=== PATIENT | male | born 1950 | race Caucasian/White ===

== ENCOUNTER → 2017-12-22 09:40 | Outpatient (CLI) | payer OTHER, SELFPAY ==
--- NOTE | 2017-12-22 09:42 | ECHOD_ITS ---
Reason For Study: AFIB Procedure This was a 2D Doppler, Color Flow transthoracic echocardiogram. Exam performed in department. Left Ventricle Mild concentric left ventricular hypertrophy. The estimated ejection fraction is 60 %. Stage 1 diastolic dysfunction. No regional wall motion abnormalities noted. Right Ventricle Normal size and thickness. Normal systolic function. Atria The left atrium is mildly enlarged. Normal right atrium. Normal atrial septum. Mitral Valve The mitral valve is structurally normal. No prolapse or stenosis seen. Trivial mitral valve insufficiency. Tricuspid Valve Normal tricuspid valve. Trivial tricuspid valve insufficiency. Right ventricular systolic pressure estimated to be 30 mmHg. Aortic Valve Trisinus/trileaflet aortic valve. Moderate diffuse aortic valve thickening. Mild diffuse aortic valve calcification. Mild to moderate aortic stenosis. Peak aortic valve gradient 27 mmHg. Mean aortic valve gradient 16 mmHg. Calculated aortic valve area (continuity equation) is 1.4 cm2. Trivial aortic valve insufficiency. Pulmonic Valve Normal pulmonic valve. Great Vessels Normal aortic root. Normal arch. Normal inferior vena cava. Inferior vena cava collapse with sniff. Pericardium/Pleural No pericardial effusion. MMode/2D Measurements & Calculations LVIDd: 4.7 cm IVSd: 1.3 cm LVOT diam: 2.0 cm LVIDs: 2.9 cm LVPWd: 0.99 cm LVOT area: 3.1 cm2 RVDd: 3.4 cm FS: 38.6 % Ao root diam: 3.3 cm LAV(MOD-bp): 65.2 ml EDV(MOD-sp4): 143.7 ml LAV(MOD-bp) Indexed: 34.6 ml/m2 ESV(MOD-sp4): 67.6 ml LAV(MOD-sp2): 73.8 ml EF(MOD-sp4): 52.9 % LAV(MOD-sp4): 58.0 ml SV(MOD-sp4): 76.1 ml LA A4 area: 21.2 cm2 RA A4 area: 18.0 cm2 Doppler Measurements & Calculations MV E max sujata: 110.6 cm/sec Ao V2 max: 259.6 cm/sec AI max sujata: 454.1 cm/sec MV A max sujata: 146.2 cm/sec Ao max P.0 mmHg AI max P.5 mmHg MV E/A: 0.76 Ao V2 mean: 190.3 cm/sec AI dec slope: 138.5 cm/sec2 Ao mean P.0 mmHg AI P1/2t: 960.5 msec Ao V2 VTI: 68.0 cm JOSE EDUARDO(I,D): 1.4 cm2 JOSE EDUARDO(V,D): 1.4 cm2 LV V1 max: 117.1 cm/sec SV(LVOT): 97.2 ml PA V2 max: 133.0 cm/sec LV V1 max P.5 mmHg LV V1 mean P.2 mmHg LV V1 mean: 86.7 cm/sec LV V1 VTI: 31.2 cm TR max sujata: 275.7 cm/sec TR max P.7 mmHg Interpretation Summary Mild concentric left ventricular hypertrophy. The estimated ejection fraction is 60 %. Stage 1 diastolic dysfunction. The left atrium is mildly enlarged. Trivial mitral valve insufficiency. Trivial tricuspid valve insufficiency. Right ventricular systolic pressure estimated to be 30 mmHg. Mild to moderate aortic stenosis. Trivial aortic valve insufficiency. There is no comparison study available. Ordering Physician: Barry Acosta Referring Physician: Claudia Worley Performed By: Salina Drummond RDCS
--- NOTE | 2017-12-22 09:42 | STE_ITS ---
Reason For Study: ATRIAL FIB/FLUTTER Stress Results Maximum Predicted HR: 153 bpm Target HR: 130 bpm % Maximum Predicted HR: 85 % DurationHeart Rate Stage (mm:ss) (bpm) BP BASELINE 65 150/88 STAGE 1 3:00 11 0 210/92 STAGE 2 3:00 13 0 230/100 RECOVERY 80 140/80 Stress Duration: 6:00 mm:ss Maximum Stress HR: 130 bpm Baseline Echocardiogram Findings The estimated ejection fraction is 65 %. Stress Echo Wall motion Data Resting WMIntermediate WMStress WM Resting Wall Motion Wall Motion Stress No regional wall motion No regional wall motion abnormalities noted. abnormalities noted. EKG Data Normal intervals are noted. The patient exercised according to the regular Bernabe protocol for a total duration of 6:00. The maximum heart rate attained was 133 beats per minute. This was 86% of maximum predicted heart rate. The patient exercised into stage 3 of the Bernabe protocol. During stress, there were no ST or T wave changes noted to suggest ischemia. No clinical angina was noted. Interpretation Summary The estimated ejection fraction is 65 %. Normal adequate treadmill echocardiogram. Negative for ischemia by EKG and echocardiographic criteria. No anginal symptoms noted. Rare PVCs noted. Hypertensive blood pressure response to exercise. Average exercise capacity for age. Final LVEF of 70%. Patient tolerated procedure well. Ordering Physician: Barry Acosta Referring Physician: Barry Acosta Performed By: Viktoria Lua RDCS
== END ==
PROVIDERS: Visit Provider Internal Medicine Cardiovascular Disease
DX: I48.0 Paroxysmal atrial fibrillation (principal); I25.10 Atherosclerotic heart disease of native coronary artery without angina pectoris; I10 Essential (primary) hypertension; E78.5 Hyperlipidemia, unspecified
CPT/HCPCS: 93017; 93306; 93350

== ENCOUNTER → 2019-08-17 12:41 | Outpatient (CLI) | payer SELFPAY ==
[2019-01-30 11:50] VITALS: BMI 29.5
--- NOTE | 2019-08-17 12:46 | ECHOD_ITS ---
Reason For Study: AORTIC STENOSIS Procedure This was a 2D Doppler, Color Flow transthoracic echocardiogram. Exam performed in department. Left Ventricle Normal size and thickness. The estimated ejection fraction is 60 %. Stage 1 diastolic dysfunction. No regional wall motion abnormalities noted. Right Ventricle Normal size and thickness. Normal systolic function. Atria The left atrium is mildly enlarged. Normal right atrium. Normal atrial septum. Mitral Valve Mild diffuse mitral valve thickening. Severe mitral annular calcification extending into the posterior leaflet. Trivial mitral valve insufficiency. Tricuspid Valve Normal tricuspid valve. Mild (1+) tricuspid valve insufficiency. Right ventricular systolic pressure estimated to be 36 mmHg. Aortic Valve Trisinus/trileaflet aortic valve. Moderate diffuse aortic valve thickening. Mild diffuse aortic valve calcification. Moderate restriction of the aortic valve. Mild to moderate aortic stenosis. Peak aortic valve gradient 31 mmHg. Mean aortic valve gradient 19 mmHg. Calculated aortic valve area (continuity equation) is 1.3 cm2. Trivial aortic valve insufficiency. Pulmonic Valve Normal pulmonic valve. Trivial pulmonic valve insufficiency. Great Vessels Normal aortic root. Normal arch. Normal inferior vena cava. Inferior vena cava collapse with sniff. Pericardium/Pleural No pericardial effusion. MMode/2D Measurements & Calculations LVIDd: 5.2 cm IVSd: 1.1 cm LVOT diam: 2.0 cm LVIDs: 3.5 cm LVPWd: 1.1 cm LVOT area: 3.3 cm2 RVDd: 3.4 cm FS: 32.4 % Ao root diam: 3.0 cm LAV(MOD-bp): 68.4 ml LA A4 area: 21.3 cm2 LAV(MOD-bp) Indexed: 36.2 ml/m2 LAV(MOD-sp2): 69.3 ml LAV(MOD-sp4): 64.5 ml LA dimension(2D): 4.2 cm RA A4 area: 18.5 cm2 Time Measurements MV dec time: 0.16 sec Doppler Measurements & Calculations MV E max sánchez: 124.9 cm/sec Lat Peak E' Sánchez: 7.7 cm/sec Med Peak E' Sánchez: 5.3 cm/sec MV A max sánchez: 142.7 cm/sec E/E' lat: 16.3 E/E' med: 23.4 MV E/A: 0.88 Ao V2 max: 278.7 cm/sec AI max sánchez: 465.5 cm/sec LV V1 max: 110.2 cm/sec Ao max P.1 mmHg AI max P.8 mmHg LV V1 max P.9 mmHg Ao V2 mean: 207.9 cm/sec AI dec slope: 307.6 cm/sec2 LV V1 mean P.0 mmHg Ao mean P.8 mmHg AI P1/2t: 443.2 msec LV V1 mean: 82.5 cm/sec Ao V2 VTI: 71.7 cm LV V1 VTI: 29.5 cm JOSE EDUARDO(I,D): 1.3 cm2 JOSE EDUARDO(V,D): 1.3 cm2 SV(LVOT): 96.4 ml PA V2 max: 123.9 cm/sec TR max sánchez: 270.4 cm/sec TR max P.3 mmHg Interpretation Summary The estimated ejection fraction is 60 %. Stage 1 diastolic dysfunction. The left atrium is mildly enlarged. Trivial mitral valve insufficiency. Mild (1+) tricuspid valve insufficiency. Right ventricular systolic pressure estimated to be 36 mmHg. Mild to moderate aortic stenosis. Peak aortic valve gradient 31 mmHg. Mean aortic valve gradient 19 mmHg. Calculated aortic valve area (continuity equation) is 1.3 cm2. Trivial aortic valve insufficiency. Compared to echo report dated 12/22/2017, no appreciable changes noted. Ordering Physician: Barry Acosta Referring Physician: Barry Acosta Performed By: Antoinette Gonzalez, KATIE, RVT
--- NOTE | 2019-08-17 12:46 | STEWCON_ITS ---
Reason For Study: - ON SOTALOL Stress Results Protocol: Stress Echocardiogram Maximum Predicted HR: 151 bpm Target HR: 128 bpm % Maximum Predicted HR: 83 % DurationHeart Rate Stage (mm:ss) (bpm) BP Comment BASELINE 74 134/84DILUTED DEFINITY 3 CC GIVEN KIRK PROTOCOL- STAGE 1 3:00 113 148/90NO SX, FREQ PVCS, RUNS KIRK PROTOCOL- STAGE 2 3:00 125 152/92FREQ PVCS/RUNS, NO CP RECOVERY 80 140/84RARE TO OCCAS PVCS Stress Duration: 6:00 mm:ss Maximum Stress HR: 125 bpm Baseline Echocardiogram Findings The estimated ejection fraction is 60 %. Stress Echo Wall motion Data Resting WM Intermediate WM Stress WM Resting Wall Motion Wall Motion Stress No regional wall motion Posterior-Basal: Mildly abnormalities noted. hypokinetic. Infero-Basal: Mildly hypokinetic. EKG Data The baseline ECG displays normal sinus rhythm. The patient exercised according to the regular Kirk protocol for a total duration of 5:59. The maximum heart rate attained was 125 beats per minute. This was 82% of maximum predicted heart rate. The patient exercised into stage 2 of the Kirk protocol. During stress, there were no ST or T wave changes noted to suggest ischemia. No clinical angina was noted. Interpretation Summary The estimated ejection fraction is 60 %. Abnormal, submaximal, treadmill echocardiogram. Positive for ischemia by EKG and echocardiographic criteria. No anginal symptoms noted. Patient had frequent PVCs during exercise with ventricular couplets and ventricular triplets combined with evidence of inferior posterior hypokinesis at peak exercise on echocardiogram. Poor echo windows requiring Definity agent may affect test results. Appropriate blood pressure response to exercise. Below average exercise capacity for age. Final LVEF of 50 %. Patient tolerated procedure well. No complications. The study was technically difficult. Contrast injection was performed. Ordering Physician: Barry Acosta Referring Physician: Barry Acosta Performed By: Antoinette Gonzalez RDCS, RVT
== END ==
PROVIDERS: Referring Provider Internal Medicine Cardiovascular Disease; Visit Provider Internal Medicine Cardiovascular Disease
DX: I35.0 Nonrheumatic aortic (valve) stenosis (principal); I11.0 Hypertensive heart disease with heart failure; I50.32 Chronic diastolic (congestive) heart failure; I25.10 Atherosclerotic heart disease of native coronary artery without angina pectoris; I48.0 Paroxysmal atrial fibrillation; E78.5 Hyperlipidemia, unspecified
CPT/HCPCS: 93017; 93306; 93350; Q9957; A4216; C8928

== ENCOUNTER → 2019-08-23 10:42 | Outpatient (CLI) | payer OTHER, SELFPAY ==
[2019-08-23 09:54] VITALS: BMI 29.5
[2019-08-23 11:56] LABS: Hematocrit 40.9 % (40-54); Mean Corp Hgb Conc 34.2 g/dL (32-36); Mean Corpuscular Hgb 29.6 pg (27.0-32.0); Mean Corpuscular Volume 86.5 fL (80-94); Mean Platelet Vol. 10.1 fl (6.2-12.0); Platelet Count 170 K/mm3 (150-450); RBC Distribution Width CV 13.6 % (11.6-14.6); Red Blood Count 4.73 M/mm3 (4.6-6.2); White Blood Count 4.8 K/mm3 (4.4-11.0)
[2019-08-23 12:10] LABS: International Normalized Ratio 1.2; Prothrombin Time (Protime)PT. 14.5 SECONDS (11.7-14.9)
[2019-08-23 12:11] LABS: Partial Thromboplast Time 31.3 Seconds (24.1-36.2)
[2019-08-23 12:53] LABS: Anion Gap 6 (5-15); BUN 22 mg/dL (7-18); BUN/Creat Ratio 26.8 RATIO (10-20); Calcium,Total 9.1 mg/dL (8.5-10.1); Chloride 107 mmol/L (98-107); Creatinine, Serum 0.82 mg/dL (0.70-1.30); EST Glomerular Filtration Rate 99 mL/min (>60); Est Glom Filt Rate - Afr Amer 120 mL/min (>60); Glucose 120 mg/dL (74-106); Potassium 4.4 mmol/L (3.5-5.1); Sodium Level 140 mmol/L (136-145)
== END ==
PROVIDERS: Referring Provider Internal Medicine Cardiovascular Disease; Visit Provider Internal Medicine Cardiovascular Disease
DX: I25.10 Atherosclerotic heart disease of native coronary artery without angina pectoris (principal); I50.32 Chronic diastolic (congestive) heart failure; I35.0 Nonrheumatic aortic (valve) stenosis; I48.0 Paroxysmal atrial fibrillation; R94.39 Abnormal result of other cardiovascular function study
CPT/HCPCS: 36415; 80048; 85027; 85610; 85730

== ENCOUNTER 2019-08-29 06:51 | Day surgery (SDC) | payer SELFPAY, OTHER ==
[2019-01-30 11:50] VITALS: BMI 29.5
[2019-08-23 09:54] VITALS: BMI 29.5
--- NOTE | 2019-08-23 10:35 | RAD_ITS ---
STUDY: X-RAY CHEST REASON FOR EXAM: Male, 69 years old. History of congestive heart failure, stent placed 4 years ago. TECHNIQUE: PA and lateral views of the chest. COMPARISON: None. FINDINGS: The lungs are clear and expanded. There is no demonstrated pleural abnormality. Normal size heart. Normal mediastinum and pascual. Normal visualized pulmonary arteries. There is atherosclerotic calcification of the aortic arch with tortuosity. There are diffuse degenerative changes of the visualized thoracic spine. There is degenerative osteoarthritis of the bilateral shoulders. There is no demonstrated abnormality of the visualized soft tissue structures of the upper abdomen. RAD/Chest PA and Lateral IMPRESSION: No acute cardiopulmonary disease. Electronically Signed: Shy Hogan MD at 1:12 EST , Service support ,
[2019-08-29] VITALS (36 sets, daily range): BP systolic 101–156; BP diastolic 57–92; PULSE 44–70; RESP 9–17; TEMP 36.4–37; O2SAT 94–98; BMI 28.5; BMI 29.2; BMI 28.4
--- NOTE | 2019-08-29 09:21 | EKG12_ITS ---
Test Reason : POST PCI Blood Pressure : / mmHG Vent. Rate : 052 BPM Atrial Rate : 052 BPM P-R Int : 192 ms QRS Dur : 082 ms QT Int : 490 ms P-R-T Axes : 054 012 020 degrees QTc Int : 455 ms Sinus bradycardia Otherwise normal ECG No previous ECGs available Confirmed by CASSIDY ACOSTA ([id number]), loan expeditor ATUL KIM ([id number]) on 09/10/2019 10:48:19 AM Referred By: Cassidy Acosta Confirmed By:CASSIDY ACOSTA
--- NOTE | 2019-08-29 09:21 | CL.I_ITS ---
Patient Name: SIMON KIM Study Date: 08/29/2019 Performing: Barry Acosta MD Ht: 66 inches 167.64 cm : 1950 Wt: 177 lbs 80.19 kg Age: 69 Gender: male BSA: 1.9 PROCEDURE(S) PERFORMED [id number]/LHC/COR/LV AI81-HZX W OR WO PTCA, SINGLE CORONARY ARTERY [id number], EACH ADD'L CORONARY ART, SAME MAJOR CLINICAL PROFILE AND CO-MORBIDITIES Indications: Stable Known CAD, Other/aortic stenosis Heart Failure: None Stress/Imaging Date: 08/17/2019 Stress Echocardiogram: Positive Intermediate Risk Angina Classification Anginal Classification w/in 2 Weeks: No symptoms CAD Presentations: Other: Dyspnea on exertion Comorbidities/Risk Factors: Hypertension Dyslipidemia Prior PCI CONCLUSIONS Normal Left Ventricular systolic function Normal LV size, wall motion,and systolic function LVEF: by LV gram 65 % Elevated Left Ventricular End Diastolic Pressure Single vessel CAD of the mid LCX Non obstructive coronary arteries The patient has normal pulmonary hemodynamics. Aortic Root dilated Aortic Valve Stenosis- Mild Successful PTCA/ANGELITA to mid LCX at bifurcation of OM#1 using double wire technique, using a 3.5 x 12 P romus Synergy; 85%-->0%, no dissection. Successful PCI with PTCA to the ostium of the OM#1 with a 2.0 x 8 balloon; 65%-->10%, no dissection. RECOMMENDATIONS Referred for immediate PCI Highly recommend quitting all tobacco products Follow up with primary business development consultant Risk factor modification ASA Indefinitley Plavix for at least 12 months Routine post interventional care Refer for Outpatient Cardiac Rehab Manual sheath removal per protocol Follow up with Dr. Dave reyes for 1 week. Manual sheath removal by laborer general staff member. DESCRIPTION OF PROCEDURE The patient arrived to the procedure lab. The risks and benefits of the procedure as well as a full d escription of our services here and lack of surgical backup were fully explained to the patient and/o r their significant other prior to the catheterization. The Timeout was completed, verifying the linda ect patient and procedure. The patient's procedural site was prepped and draped in the usual fashion. Local anesthetic was given subcutaneously to right groin region with Lidocaine 2%. Using a modified Seldinger technique, arterial access was obtained via the right femoral artery, a 4Fr sheath was inse rted. Venous access was obtained via the right femoral vein, a 7Fr sheath was inserted. A 7Fr thermal dilution catheter was inserted and right heart pressures were recorded, it was then advanced to PA p osition for cardiac outputs. Thermal dilution cardiac outputs were then recorded. The Thermal dilutio n catheter was then removed. Left Ventriculography was performed in FOURNIER projection using a 4 Fr. Pigtail catheter. Left Coronary Artery selective angiography was performed in multiple views us ing a 4 Fr. JL5 catheter. Right Coronary Artery selective angiography was then performed in multiple views using a 4 Fr. 3DRC catheterThe images were reviewed and options discussed. A decision was then made to proceed with an Intervention, IVUS or other adjunct procedure. Arterial sheath was exchanged for a 6 Fr Sheath. EBU 3.5 Guide catheter was inserted and engaged into the LCA. BMW Guide wire was advanced to the Circumflex. BMW Guide wire was inserted as a savanah w jagjit OM #1 Angiogram performed pre balloon dilatation. Emerge 2.00x8 Balloon catheter was inserted. PT CA balloon inflated at 4 atms for 8 secs. Angiogram performed post balloon dilatation. Synergy 3.50x1 2 Drug Eluting stent was inserted. Emerge 2.00x8 Balloon catheter was inserted. PTCA balloon inflated at 8 atms for 11 secs. PTCA balloon inflated at 8 atms for 25 secs. Angiogram performed post balloon dilatation. Contrast was injected through the sheath and the Right Iliac and Femoral artery were ass essed for possible closure device. The arterial and venous sheath was sutured in place and capped CORONARY ANGIOGRAPHY DOMINANCE: Left Dominant LEFT HEART ASSESSMENT Left Ventricular Ejection Fraction: by LV Gram 65 % Normal Left Ventricular systolic function LVEDP: 18 mmHg Elevated Left Ventricular End Diastolic Pressure Normal LV wall motion RIGHT HEART ASSESSMENT Thermal CO: 6.07 Thermal CI: 3.19 Gregory CO: 4.58 Gregory CI: 2.41 PW: 19/20 11 PA: 31/13 20 RV: 33/0 7 RA: 8/5 2 PVR: 119 SVR: 1357 Aortic Valve Area: 2.39 Aortic Valve Index: 1.26 Aortic Valve Mean Gradient: 16.9 Mitral Valve Area: 1.92 Mitral Valve index: 1.01 Mitral Valve Mean Gradient: 8.4 Right Heart pressures - normal LEFT MAIN: Angiographically normal LEFT ANTERIOR DESCENDING ARTERY: MID LAD: Previously placed stent is patent DIAGONAL 1: Proximal - Non-obstructive CIRCUMFLEX ARTERY: MID CIRC: 85 % Stenosis RIGHT CORONARY ARTERY: Non-obstructive INTERVENTION INFORMATION LESION SITE: Circumflex (Mid) Lesion Complexity: Non-High/Non-C, lesion at bifurcation: Yes, thrombus present: No, lesion length: 1 2 mm, culprit lesion: Yes Pre Stenosis: 85 % Pre intervention ANAND flow: 3 PROCEDURE: Drug Eluting Stent with pre dilatation. Post Stenosis: 0 % Post intervention ANAND flow: 3 Lesion Devices: [employer] EMERGE MR 2.00x08 BALLOON [place] .014 BMW [place] Straight 190cm [employer] Synergy MR ANGELITA 3.50x12 LESION SITE: 1st OM (Ostial) Lesion Complexity: Non-High/Non-C, lesion at bifurcation: Yes, thrombus present: No, lesion length: 8 mm, culprit lesion: No Pre Stenosis: 65 % Pre intervention ANAND flow: 3 Post Stenosis: 10 % Post intervention ANAND flow: 3 Lesion Devices: Vivid [employer] MR 2.00x08 BALLOON [place] .014 BMW [place] Straight 190cm COMPLICATIONS No Complications PROCEDURE MEDICATIONS Heparin 6000 unit(s) IV 08/29/2019 08:39:16 Nitro 200 mcg IC 08/29/2019 08:48:09 Nitro 300 mcg IC 08/29/2019 08:51:49 Nitro 300 mcg IC 08/29/2019 08:56:01 Nitro Paste 1 in RCW 08/29/2019 09:05:36 IV Bolus: .9 NaCl 350 ml total 08/29/2019 08:40:57 SUMMARY OF HEMODYNAMIC DATA Time AIR REST ECG 07:21:40 RA 8/5 (2) SV 08:22:44 RV 33/0, 7 08:23:14 PW (11) PV 08:24:35 PA 31 (20) PA 08:24:58 PW (9) 08:25:28 LV 147/-11, 16 08:30:06 LV 152/-10, 18 08:30:13 LV 154/-11, 15 08:30:34 PW / (12) 08:30:34 LV 148/-10, 15 08:30:40 PW 18/16 (9) 08:30:40 LV 147/-15, 13 08:30:59 RV 31/-4, 5 08:30:59 LV 156/-10, 20 08:31:06 RV 33/0, 6 08:31:06 LVp 159/-10, 22 08:32:35 LV 155/-10, 18 08:32:36 LVp 159/-9, 24 08:32:40 AOp 149/68 (97) 08:32:41 AOp 149/68 (98) 08:32:45 AO 133/84 (105) SA 08:35:24 Valve Area (c P-P/ms Time AIR REST Mitral 1.92 8.4 mn/518 ms 08:30:40 2.40 08:32:35 Type SV CO (l/m) CI (l/m/ HR Time AIR REST Thermal 126.50 6.07 3.19 48 07:21:40 Gregory 95.40 4.58 2.41 48 07:21:40 Label % O2 Pres/Loc Time AIR REST PA 68 PA 08:43:42 AO 97 PV 08:43:47 Signed By Barry Acosta MD On 09/04/2019 11:25:44 AM Barry Acosta MD
[2019-08-29] MEDS: 0.9% Normal Saline 1,000 ML 150 ML IV (10:05)
--- NOTE | 2019-08-29 10:19 | CRPHASE1_ITS ---
Patient Communication PHII Cardiac Rehab Discussed with Patient:: Yes Guide to Cardiac Rehab Given to Patient:: Yes Cardiac Rehab Facility Choice List Given to Patient:: Yes Choice Program Other:: Communication Given to CR, With permission faxed order and referral information - [facility] Pipe Testing Technician:: Barry Acosta PCP:: Piotr Worley Refer Phase II Cardiac Rehab:: Yes Risk Factors/Lifestyle Hx Hypertension: Yes Hx Diabetes Mellitus Type 1: No Hx Dyslipidemia: Yes Height: 5 ft 6 in Weight:: 176 lb BMI: 28.4 Family History: Family History (Last Reviewed 07/26/19 @ 09:59 by Brandee Herman) Mother Hypertension Father Hypertension CAD (coronary artery disease) Phase I Education Given On:: [place], Nutrition, Antiplatelet medication, CHF, Smoking cessation, Diabetes - Type I, Diabetes - Type II Issues Affecting Care:: None Medical/Surgical History CAD:: Yes Valve Disease/Replacement:: Yes Pulmonary:: No COPD:: No Asthma:: No Diabetes:: No Hypertension:: Yes Dyslipidemia:: Yes Arrhythmias:: Yes - HX OF A FIB PE:: No DVT:: No PVD:: No Arthritis:: Yes - OSTEOARTHRITIS GERD:: No Cancer:: No Renal:: No Thyroid:: No CABG: No ICD:: No Pacemaker:: No Discharge/Home/Social Eval Discharge Disposition: Home Marital Status: Cardiac Rehabilitation Info Cardiac Rehabilitation Program Information: Cardiac Rehabilitation is important for patients like you who are recovering from a heart problem. Cardiac rehabilitation programs are recognized as integral to the continued care of the patient with coronary heart disease. The cardiac rehabilitation program is designed to optimize a patient's physical, psychological, and social functioning. Health career placement specialist work in cardiac rehabilitation programs and assist you with getting the treatments you need to get stronger and healthier - like exercise, healthy eating habits, and medications. Cardiac rehabilitation has been show to help people with heart problems live longer and have better life enjoyment than people who do not go to cardiac rehabilitation. Please contact the Cardiac Rehabilitation Program at [facility] at in two weeks if you have not heard from them.
--- NOTE | 2019-08-29 10:24 | CRPH1.INSTRU ---
General Education CAD and cardiac anatomy and function:: Not instructed Explanation of diagnoses and procedures:: Not instructed Sign/Symptoms of PA:: Not instructed Antiplatelet therapy: Patient communicates acknowledgment Proper use of NTG-SL: Not instructed Emergency procedures and activation of EMS: Patient communicates acknowledgment, Family communicates acknowledgment Compliance of all prescribed medications: Patient communicates acknowledgment Smoking Nicotine/Smoking Response Code:: Not instructed Dyslipidemia Patient Dyslipidemia Risk Factors Are:: Total Cholesterol Recommendations Include:: Lipid profile not available Overweight/Obesity Patient Overweight/Obesity Risk Factors Are:: BMI Normal [24-29 & > 65 years old] Overweight/Obesity:: Not instructed Hypertension Recommendations Include:: Maintain BP <130/85, BP <130/80 if diabetic, DASH dietary guidelines, Decrease/maintain normal body weight, Moderation of ETOH Hypertension:: Needs reinforcement Heart Disease Recommendations Include:: Educated family members of their risk, Educated family members of importance of prevention of heart disease Heart Disease Response Code:: Not instructed Diabetes Patient Diabetes Risk Factors Are:: No documented hx of diabetes Metabolic Syndrome Metabolic Syndrome Response Code:: Not instructed Sedentary Sedentary Response Code:: Not instructed Stress Stress Response Code:: Not instructed
[2019-08-29 10:41] LABS: Blood Gas Specimen Type VEN; VBG BASE EXCESS 2 mmol/L (-1.0-3.5); VBG Bicarbonate 27 mmol/L (22-26); VBG Oxygen Content 28 mmol/L (23-33); VBG PO2 35 mmHg (25-40); VBG SO2 66 % (50-70); VBG pH 7.38 (7.32-7.42)
[2019-08-29 10:41] LABS: Blood Gas Specimen Type VEN; VBG BASE EXCESS 1 mmol/L (-1.0-3.5); VBG Bicarbonate 26 mmol/L (22-26); VBG Oxygen Content 28 mmol/L (23-33); VBG PO2 37 mmHg (25-40); VBG SO2 69 % (50-70); VBG pCO2 44.3 mmHg (41-51); VBG pH 7.38 (7.32-7.42)
[2019-08-29 10:41] LABS: ACT Activated Clotting Time 197 sec (74-137)
[2019-08-29 10:41] LABS: Base Excess -5 mmol/L (-2 to +2); Bicarbonate 20.9 mmol/L (22-26); Blood Gas Specimen Type ART; PO2 96 mmHG (75-100); SO2 97 % (95-99); Total Carbon Dioxide 22 mmol/L; pCO2 39.3 mmHg (35-45); pH 7.33 (7.35-7.45)
[2019-08-29 11:15] LABS: ACT Activated Clotting Time 136 sec (74-137)
[2019-08-29] MEDS: Nitroglycerin Oint 1 INCH PACKET TRANSDERM. ×2 (14:03→21:35)
[2019-08-29] MEDS: Losartan Potassium 50 MG Tablet PO (16:10)
[2019-08-29] MEDS: Furosemide 20 MG Tablet PO (16:10)
[2019-08-29] MEDS: Sotalol Hydrochloride 80 MG Tablet PO (21:35)
[2019-08-29] MEDS: Atorvastatin Calcium 20 MG Tablet PO (21:35)
[2019-08-29] MEDS: amLODIPine 10 MG Tablet PO (21:35)
[2019-08-29] MEDS: cloNIDine HCl 0.1 MG Tablet 0.3 MG PO (21:36)
[2019-08-30] VITALS (14 sets, daily range): BP systolic 98–128; BP diastolic 46–69; PULSE 49–67; RESP 12–16; TEMP 36.6–37.2; O2SAT 93–96
[2019-08-30] MEDS: Nitroglycerin Oint 1 INCH PACKET TRANSDERM. (05:13)
[2019-08-30 05:29] LABS: Hematocrit 37.5 % (40-54); Mean Corp Hgb Conc 34.7 g/dL (32-36); Mean Corpuscular Hgb 29.5 pg (27.0-32.0); Mean Corpuscular Volume 85.2 fL (80-94); Mean Platelet Vol. 9.6 fl (6.2-12.0); Platelet Count 136 K/mm3 (150-450); RBC Distribution Width CV 13.4 % (11.6-14.6); RBC Distribution Width SD 41.5 fl (35.1-43.9); White Blood Count 5.4 K/mm3 (4.4-11.0)
[2019-08-30 05:54] LABS: ALB/GLOB Ratio 1.2 RATIO (0.9-2.4); AST(SGOT) 17 U/L (15-37); Alanine Aminotransfer ALT/SGPT 33 U/L (16-61); Albumin, Serum 3.5 g/dL (3.2-5.0); Alkaline Phosphatase 65 U/L (45-117); Anion Gap 6 (5-15); BUN 17 mg/dL (7-18); BUN/Creat Ratio 20.8 RATIO (10-20); Calcium,Total 8.4 mg/dL (8.5-10.1); Chloride 109 mmol/L (98-107); Creatinine, Serum 0.82 mg/dL (0.70-1.30); EST Glomerular Filtration Rate 99 mL/min (>60); Est Glom Filt Rate - Afr Amer 120 mL/min (>60); Estimated Creatinine Clearance 76.72 ml/min; Globulin 2.9 g/dL (2.2-4.2); Glucose 118 mg/dL (74-106); Potassium 3.8 mmol/L (3.5-5.1); Protein, Total 6.4 g/dL (6.4-8.2); Sodium Level 141 mmol/L (136-145)
--- NOTE | 2019-08-30 08:38 | PCM.PN.CARD ---
Subjectve: Patient doing very well this morning. Feels much better. No 24-hour events. Telemetry showed normal sinus rhythm with rare PVC. EKG shows normal sinus rhythm, no acute changes. Hemoglobin and creatinine are within nominal limits. Blood pressure is much improved over yesterday. Objective: Vital Signs Temp Pulse Resp BP Pulse Ox 97.9 F 59 L 12 118/66 95 08/30/19 08:00 08/30/19 08:00 08/30/19 08:00 08/30/19 08:00 08/30/19 08:00 Oxygen Delivery Method Room Air Weight: 179 lb 3.773 oz Body Mass Index (BMI) 29.2 Intake and Output for Last 24 Hours 08/28/19 08/29/19 08/30/19 23:59 23:59 23:59 Intake Total 1417.5 / 1417.5 Output Total 1150 / 1150 900 / 900 Balance 267.5 / 267.5 -900 / -900 General: Awake, Alert, Oriented x 3 HEENT: PERRL, EOMI, Sclera Non Icteric Neck: Supple, Good ROM, No Lymph Node Enlargement Lungs: Clear to auscultation Cardiovascular: Regular Rhythm, Normal S1, Normal S2, No Murmurs, No Rubs, No Gallops Vascular: No Carotid Bruits, Normal Femoral Pulses, Normal Radial Pulses, Normal Dorsalis Pedal Pulse, Normal Posterior Tibial Pulses Abdomen: Bowel Sounds Present, Soft, Non Tender, No HSM, No Organomegaly Extremities: No Cyanosis, No Clubbing, No edema Neurological: No Focal Motor or Sensory Deficit 08/29/19 08:29: VBG pH 7.38, VBG pO2 35, VBG O2 Sat (Calc) 66, VBG O2 Content 28, VBG Base Excess 2 08/29/19 08:32: VBG pH 7.38, VBG pO2 37, VBG O2 Sat (Calc) 69, VBG O2 Content 28, VBG Base Excess 1 08/29/19 08:39: pH 7.33 L, Bicarbonate Actual 20.9 L, POC Total CO2 22, Base Excess -5 L, O2 Saturation 97, ABG pCO2 39.3, ABG pO2 96 08/30/19 05:15: WBC 5.4, RBC 4.40 L, Hgb 13.0, Hct 37.5 L, MCV 85.2, MCH 29.5, MCHC 34.7, Plt Count 136 L, MPV 9.6 08/30/19 05:15: Sodium 141, Potassium 3.8, Chloride 109 H, Carbon Dioxide 26.0, Anion Gap 6, BUN 17, Creatinine 0.82, Est GFR (MDRD) Af Amer 120, Est GFR (MDRD) Non-Af 99, BUN/Creatinine Ratio 20.8 H, Glucose 118 H, Calcium 8.4 L, Total Bilirubin 1.50 H Rhythm: EKG: ECHO: Stress Test: Cardiac Cath: PCI: CT Surgery: Holter monitor: EPS: PPM: CXR: Chest CT Scan: Medical Necessity - Tobacco Use Smoking Status: Former smoker Assessment/Plan 1. Coronary artery disease: Patient status post angioplasty and drug-eluting stenting to his mid left circumflex just downstream from the bifurcation of the obtuse marginal. Patient feels much better with this initial intervention, and is doing quite well. I recommend the patient continue baby aspirin, Plavix, losartan, amlodipine, clonidine and sotalol. Patient may be discharged home and follow-up with Dr. Acosta going forward. He will be enrolled in cardiac rehab in 2 weeks time once his groin has healed. 2. Hyperlipidemia: Continue statin based medications. Repeat lipid profile at the conclusion of cardiac rehab. 3. Thank you very much for the opportunity to put dissipate in the cardiac care of your patient. Code Visit Inpatient E&M: 22919 Subs Hosp L2
--- NOTE | 2019-08-30 09:21 | EKG12_ITS ---
Test Reason : AM EKG Blood Pressure : / mmHG Vent. Rate : 055 BPM Atrial Rate : 055 BPM P-R Int : 186 ms QRS Dur : 090 ms QT Int : 478 ms P-R-T Axes : 068 -04 023 degrees QTc Int : 457 ms Sinus bradycardia Inferior infarct , age undetermined Abnormal ECG No previous ECGs available Confirmed by CASSIDY ACOSTA ([id number]), field map editor ATUL KIM ([id number]) on 09/10/2019 10:52:10 AM Referred By: Cassidy Acosta Confirmed By:CASSIDY ACOSTA
[2019-08-30] MEDS: Furosemide 20 MG Tablet PO (09:24)
[2019-08-30] MEDS: cloNIDine HCl 0.1 MG Tablet 0.3 MG PO (09:24)
[2019-08-30] MEDS: Sotalol Hydrochloride 80 MG Tablet PO (09:24)
[2019-08-30] MEDS: Clopidogrel Bisulfate 75 MG Tablet PO (09:24)
[2019-08-30] MEDS: Aspirin E.C. 81 MG Tablet PO (09:25)
[2019-08-30] MEDS: amLODIPine 10 MG Tablet PO (09:25)
--- NOTE | 2019-08-30 09:26 | DCINST_ITS ---
Discharge Diet: Low fat/ Low Cholesterol Discharge Activity: Return to Normal Activity May shower in (days): 1 - No tub baths for 5 days May resume sexual activity in: 1-2 weeks Lifting Restrictions: Do not lift anything greater than 10 pounds for 3 days Call your doctor if your incision/area has: Continuous Slow Oozing, Sudden Increased Bleeding, Increased Pain/ Swelling, Increased Redness, Foul Smelling Discharge, Swelling at the incision site Call your doctor if you observe: Fever of 101 or Higher, Shortness of breath, Chest pain Remove Dressing in (days):: 1 Cleanse incision/area with: Soap & Water Additional Instructions: You will continue with Aspirin and Plavix therapy. If anyone asks you to stop your Plavix, please call the [facility] at [phone]. Over time we can adjust your antiplatelet and anticoagulation medications. However, for at least the first 3 months, ideally we should continue with Aspirin, Plavix, and Eliquis therapy. Please hold Eliquis for 1 week. You are scheduled for an office appointment with Dr. Acosta on 09/22/2019 at 2:30 PM. If you have any questions or concerns please call the [facility]. Allergies/Adverse Reactions: Allergies No Known Allergies Allergy (Verified 08/03/19 10:09) Medications to take at Discharge alprazolam 0.5 mg tablet 0.5 mg PO BID PRN tab 11/29/17 aspirin 81 mg tablet,delayed release 81 mg PO QDAY tab 11/29/17 clonidine HCl 0.3 mg tablet 0.3 mg PO Q12H 11/29/17 furosemide 40 mg tablet 20 mg PO QDAY tab 11/29/17 sotalol 80 mg tablet 80 mg PO Q12H 11/29/17 valsartan 160 mg tablet 160 mg PO QDAY 11/29/17 apixaban 5 mg tablet 5 mg PO BID 11/30/17 atorvastatin 20 mg tablet 20 mg PO QHS tab 11/30/17 potassium chloride ER 20 mEq tablet,extended release 10 meq PO QDAY tab 11/30/17 amlodipine 10 mg tablet 10 mg PO BID tab 01/30/19 Clopidogrel Bisulfate [Clopidogrel] 75 mg PO .COMPLEX #90 tab 08/30/19 Orders to be completed after discharge: Phase II, Outpatient Cardiac Rehab Location: None Selected Primary Care Physician: Claudia Worley MD [Primary Care Provider] - Test Results: Test results from this visit will be discussed in further detail at your follow- up appointment, if applicable. Please Follow Up With: Dr. Acosta When: 09/22/2019 at 2:30 PM Cardiac Rehabilitation Info Cardiac Rehabilitation Program Information: Cardiac Rehabilitation is important for patients like you who are recovering from a heart problem. Cardiac rehabilitation programs are recognized as integral to the continued care of the patient with coronary heart disease. The cardiac rehabilitation program is designed to optimize a patient's physical, psychological, and social functioning. Health c are professionals work in cardiac rehabilitation programs and assist you with getting the treatments you need to get stronger and healthier - like exercise, healthy eating habits, and medications. Cardiac rehabilitation has been show to help people with heart problems live longer and have better life enjoyment than people who do not go to cardiac rehabilitation. Please contact the Cardiac Rehabilitation Program at [facility] at in two weeks if you have not heard from them.
--- NOTE | 2019-08-30 09:46 | CASEMGMT ---
RN asked SW about cost of cardiac rehab, as pt does not think the [facility] will cover it. SW called [facility] liaison. She as able to look up cost, which is $138.70 per visit, and there would be a 25% discount for prompt payment. Jessica is going to call the [facility] and let pt know whether or not it's covered. SW let pt and know the above information, RN also in room. Pt's asked if he needs to go here or can go somewhere in [place]. RN explained pt can go elsewhere, does not have to be here. SW let them know that Jessica will be up to speak w/them once she calls the [facility], to let them know whether or not cardiac rehab is covered. SW explained does not know pricing for [place], they can talk to that facility about their pricing, though it is anticipated if cardiac rehab is covered here it would be covered in [place] also. Pt and state understanding. No further needs are anticipated at this time. ANAND Medina
== END 2019-08-30 10:45 | disposition home or self-care (01) ==
LOC: CLSP 06:56 → ICU 09:10
PROVIDERS: Referring Provider Internal Medicine Cardiovascular Disease; Visit Provider Internal Medicine Cardiovascular Disease
DX: I25.10 Atherosclerotic heart disease of native coronary artery without angina pectoris (principal); I48.0 Paroxysmal atrial fibrillation; I35.0 Nonrheumatic aortic (valve) stenosis; E78.5 Hyperlipidemia, unspecified; I11.0 Hypertensive heart disease with heart failure; I50.32 Chronic diastolic (congestive) heart failure; M19.90 Unspecified osteoarthritis, unspecified site; Z79.82 Long term (current) use of aspirin; Z79.02 Long term (current) use of antithrombotics/antiplatelets; Z79.899 Other long term (current) drug therapy; Z87.891 Personal history of nicotine dependence
CPT/HCPCS: 71046; 80053; 82803; 85027; 85347; 92921; 92928; 93005; 93460; J7030; J7040; Q9967; C1725; C1751; C1769; C1874; C1887; C1894; C9600

== ENCOUNTER → 2022-10-26 | Outpatient (CLI) | payer SELFPAY, OTHER ==
[2019-08-29 10:23] VITALS: BMI 28.4
--- NOTE | 2022-10-26 10:59 | ECHOD_ITS ---
Reason For Study: Murmur Procedure This was a 2D Doppler, Color Flow transthoracic echocardiogram. The exam was of adequate technical quality. Exam performed in department. Left Ventricle Normal LV size. Left ventricular systolic function is normal. The estimated ejection fraction is 60 %. Stage 2 diastolic dysfunction. No regional wall motion abnormalities noted. Right Ventricle Normal RV size. Normal systolic function. Atria The left atrium is mildly enlarged. Normal right atrium. No doppler evidence for ASD. Mitral Valve There is mild to moderate mitral annular calcification. Extension of the mitral annular calcification onto the base of the posterior mitral valve leaflet. Mild (1+) eccentric mitral valve insufficiency. Tricuspid Valve Normal tricuspid valve. Trivial tricuspid valve insufficiency. Right ventricular systolic pressure estimated to be 35 mmHg. Aortic Valve Trisinus/trileaflet aortic valve. Moderate diffuse aortic valve calcification. Moderate aortic stenosis. Trivial aortic valve insufficiency. Pulmonic Valve The pulmonic valve is not well visualized. Great Vessels Normal sized aortic root. Pericardium/Pleural No pericardial effusion. MMode/2D Measurements & Calculations LVIDd: 4.4 cm IVSd: 1.2 cm LVOT diam: 2.0 cm LVIDs: 3.2 cm LVPWd: 1.2 cm LVOT area: 3.2 cm2 RVDd: 4.2 cm FS: 26.6 % Ao root diam: 3.7 cm LAV(MOD-bp): 80.9 ml LA A4 area: 22.8 cm2 LA dimension: 4.8 cm LAV(MOD-bp) Indexed: 41.7 ml/m2 LAV(MOD-sp2): 93.6 ml LAV(MOD-sp4): 69.0 ml RA A4 area: 19.8 cm2 Time Measurements MV dec time: 0.22 sec Doppler Measurements & Calculations MV E max sánchez: 88.8 cm/sec Lat Peak E' Sánchez: 6.9 cm/sec Med Peak E' Sánchez: 5.9 cm/sec MV A max sánchez: 114.3 cm/sec E/E' lat: 12.9 E/E' med: 15.1 MV E/A: 0.78 MV V2 max: 151.5 cm/sec MV P1/2t max sánchez: 110.8 cm/sec Ao V2 max: 335.9 cm/sec MV max P.2 mmHg MV P1/2t: 87.7 msec Ao max P.3 mmHg MV V2 mean: 75.1 cm/sec MV dec slope: 370.0 cm/sec2 Ao V2 mean: 248.8 cm/sec MV mean P.7 mmHg Ao mean P.3 mmHg MV V2 VTI: 51.8 cm MVA(P1/2t): 2.5 cm2 Ao V2 VTI: 91.6 cm MVA(VTI): 1.8 cm2 AV (velocity ratio): 0.33 JOSE EDUARDO(I,D): 1.0 cm2 JOSE EDUARDO(V,D): 1.0 cm2 AI max sánchez: 326.5 cm/sec LV V1 max: 108.1 cm/sec SV(LVOT): 95.6 ml AI max P.7 mmHg LV V1 max P.7 mmHg LV V1 mean P.8 mmHg AI dec slope: 98.9 cm/sec2 LV V1 mean: 78.3 cm/sec AI P1/2t: 966.8 msec LV V1 VTI: 29.8 cm PA V2 max: 117.0 cm/sec TR max sánchez: 282.8 cm/sec PI dec slope: 209.6 cm/sec2 TR max P.0 mmHg ECHO/Echo Complete Interpretation Summary Left ventricular systolic function is normal. The estimated ejection fraction is 60 %. The left atrium is mildly enlarged. There is mild to moderate mitral annular calcification. Extension of the mitral annular calcification onto the base of the posterior mi tral valve leaflet. Mild (1+) eccentric mitral valve insufficiency. Trivial tricuspid valve insufficiency. Moderate diffuse aortic valve calcification. Moderate aortic stenosis. Trivial aortic valve insufficiency. Right ventricular systolic pressure estimated to be 35 mmHg. Stage 2 diastolic dysfunction. Ordering Physician: Carlos Rodriguez Performed By: Chance Myers RCS
== END | disposition home or self-care (01) ==
PROVIDERS: PCP Nurse Practitioner Family; Visit Provider Internal Medicine Cardiovascular Disease
DX: I50.32 Chronic diastolic (congestive) heart failure (principal); I48.0 Paroxysmal atrial fibrillation; Z95.5 Presence of coronary angioplasty implant and graft; I25.10 Atherosclerotic heart disease of native coronary artery without angina pectoris; E78.5 Hyperlipidemia, unspecified; I35.0 Nonrheumatic aortic (valve) stenosis
CPT/HCPCS: 93306

== ENCOUNTER → 2023-11-30 | Outpatient (CLI) | payer SELFPAY, OTHER ==
[2019-08-29 10:23] VITALS: BMI 28.4
--- NOTE | 2023-11-30 06:24 | ECHOD_ITS ---
Reason For Study: PRE OP Procedure This was a 2D Doppler, Color Flow transthoracic echocardiogram. Exam performed in department. Left Ventricle Normal LV size. Mild concentric left ventricular hypertrophy. Stage 3 diastolic dysfunction. The left ventricular ejection fraction is 60 %. Right Ventricle Normal right ventricle. Atria The left atrium is severely enlarged. The right atrium is moderately enlarged. Mitral Valve Mild (1+) mitral valve insufficiency. Tricuspid Valve Mild tricuspid valve insufficiency. Normal pulmonary artery pressure. Aortic Valve Moderate aortic stenosis. Trivial aortic valve insufficiency. Pulmonic Valve The pulmonic valve is not well visualized. Great Vessels Normal sized aortic root. Pericardium/Pleural No pericardial effusion. MMode/2D Measurements & Calculations LVIDd: 4.4 cm IVSd: 1.3 cm LVOT diam: 2.1 cm LVIDs: 3.1 cm LVPWd: 1.2 cm LVOT area: 3.6 cm2 FS: 30.1 % Ao root diam: 3.6 cm LAV(MOD-bp): 86.3 ml LVAd ap4: 27.2 cm2 LAV(MOD-bp) Indexed: 44.9 ml/m2 LVLd ap4: 7.7 cm LAV(MOD-sp2): 82.0 ml EDV(MOD-sp4): 79.5 ml LAV(MOD-sp4): 80.6 ml EDV(sp4-el): 81.3 ml LVAs ap4: 15.5 cm2 LVLs ap4: 6.7 cm ESV(MOD-sp4): 30.9 ml ESV(sp4-el): 30.4 ml EF(MOD-sp4): 61.1 % EF(sp4-el): 62.5 % LVAd ap2: 22.2 cm2 SV(MOD-sp4): 48.6 ml SV(MOD-sp2): 32.5 ml LVLd ap2: 7.7 cm EDV(MOD-sp2): 52.2 ml EDV(sp2-el): 54.5 ml LVAs ap2: 12.2 cm2 LVLs ap2: 6.5 cm ESV(MOD-sp2): 19.7 ml ESV(sp2-el): 19.4 ml EF(MOD-sp2): 62.2 % SV(sp4-el): 50.9 ml LA dimension(2D): 4.7 cm LA A4 area: 24.4 cm2 RA A4 area: 21.0 cm2 TAPSE: 1.8 cm Time Measurements MV dec time: 0.17 sec Doppler Measurements & Calculations MV E max sánchez: 129.7 cm/sec Lat Peak E' Sánchez: 9.3 cm/sec Med Peak E' Sánchez: 4.7 cm/sec MV A max sánchez: 46.8 cm/sec E/E' lat: 13.9 E/E' med: 27.4 MV E/A: 2.8 MV V2 max: 149.2 cm/sec MV P1/2t max sánchez: 147.9 cm/sec Ao V2 max: 324.5 cm/sec MV max P.9 mmHg MV P1/2t: 65.1 msec Ao max P.2 mmHg MV V2 mean: 62.4 cm/sec Ao V2 mean: 236.8 cm/sec MV mean P.2 mmHg MV dec slope: 665.7 cm/sec2 Ao mean P.2 mmHg MV V2 VTI: 33.8 cm MVA(P1/2t): 3.4 cm2 Ao V2 VTI: 81.9 cm AV (velocity ratio): 0.27 MVA(VTI): 2.4 cm2 JOSE EDUARDO(I,D): 0.98 cm2 JOSE EDUARDO(V,D): 0.97 cm2 LV V1 max: 87.4 cm/sec SV(LVOT): 80.4 ml PA V2 max: 112.9 cm/sec LV V1 max P.1 mmHg PA V2 mean: 68.0 cm/sec LV V1 mean P.0 mmHg LV V1 mean: 68.2 cm/sec LV V1 VTI: 22.4 cm PI dec slope: 133.3 cm/sec2 TR max sánchez: 285.7 cm/sec TR max P.9 mmHg ECHO/Echo Complete Interpretation Summary Mild concentric left ventricular hypertrophy. Stage 3 diastolic dysfunction. The left ventricular ejection fraction is 60 %. The left atrium is severely enlarged. The right atrium is moderately enlarged. Mild (1+) mitral valve insufficiency. Mild tricuspid valve insufficiency. Moderate aortic stenosis. Ordering Physician: Geovany Bradford Referring Physician: Jess Ontiveros Performed By: Antoinette Gonzalez, KATIE, RVT
--- OUTSIDE RECORDS SUMMARY | 2023-11-30 06:28 | XMS RPT_ITS | CCD ---
Author Name Unknown Address [address] [place] [address] Organization [facility] Care Team Providers Care Car Scrubber Name Role Phone RENNY MEDINA Unavailable Unavail able RENNY MEDINA Unavailable Unavail able BON SIMENTAL MD Attending Unavailable PHYSICIAN, NOT RECORDED Primary Care Unavaila calin MEADOWSP-C, OMARI Heredia Unavailable SILVIA, EYE Unavailable BERLIN Unavailable Unavailable ORTHOPEDICS, GENERAL Unavailable Unavailable LASHAUN MARCOS, JJ Unavailable Unavail able CARDIOLOGY, GENERAL Unavailable Unavailable JUDY MARCOS, DORIS Unavailable Rachel Higginbotham RN Unavailable Unavailable KACIE MARCOS, BEN An Unavailable EMMETT HESTER MD Unavailable HODAN SUAREZ RN Unavailable Unavailable Gravius, Honey Unavailable Unavailable LISA RN, MICHELLE Unavailable Unavaila HARISH Fallon Unavailable Unavailable DeniseTierney boyd Unavailable Unavailable Wendi ESPINO MD Unavailable SETH KIM Unavailable Unavailable Nighat Kim Unavailable Unavailable Overholt INVESTIGATION SPECIALIST, Una Unavailable Unavailable Amaris, Tayo Unavailable Unavailable AMARIS, TAYO Unavailable Unavailable Jesus, Alma Unavailable Unavailable Dee Shila Unavailable Unavailable Mikhail RN, Shea Unavailable Unavaila AIRAM Nevarez Unavailable Unavailable Larisa PORTER, Erika Unavailable Unavailable Unavailable Unavailable EMMETT HESTER Consulting Unavailable JIL REMY MD Attending Unavailable JIL REMY MD Primary Care Unavailable JONEL, JIL MD Admitting Unavailable PROVIDER, UNKNOWN Consulting Unavailable PROVIDER, UNKNOWN Consulting Unavailable PROVIDER, UNKNOWN Consulting Unavailable KACIE EMMETT T Consulting Unavailable OMARI SAMUELS CAMP RECREATION SPECIALIST Attending OMARI Cartagena NP Primary Care Unavailab OMARI Becker CAMP RECREATION SPECIALIST Admitting Unavailab le PROVIDER, UNKNOWN Consulting Unavailable PROVIDER, UNKNOWN Consulting Unavailable PROVIDER, UNKNOWN Consulting Unavailable Medications Current Medications Medication Drug Class(es) Dates Sig (Normalized) Sig (Original) ALPRAZolam 0.5 mg oral tablet (5 sources) Benzodiazepine Start: 07-12-2023 amLODIPine 5 mg oral tablet (5 sources) Dihydropyridine Calcium Channel Jessi Start: 07-09-2023 apixaban 5 mg oral tablet (10 sources) Factor Xa Inhibitor Start: 06-23-2021 aspirin 81 mg oral tablet (5 sources) Platelet Aggregation Inhibitor, Nonsteroidal Anti-inflammatory Drug atorvastatin 20 mg oral tablet (10 sources) HMG-CoA Reductase Inhibitor Start: 06-14-2023 cloNIDine hydrochloride 0.3 mg oral tablet (15 sources) Central alpha-2 Adrenergic Agonist Start: 09-30-2023 furosemide 40 mg oral tablet (10 sources) Loop Diuretic Start: 09-06-2023 levothyroxine sodium 0.075 mg oral tablet (5 sources) l-Thyroxine Start: 07-09-2023 potassium chloride 20 meq extended release oral tablet (5 sources) Start: 01-25-2023 sotalol hydrochloride 80 mg oral tablet (5 sources) Antiarrhythmic Start: 09-06-2023 valsartan 160 mg oral tablet (10 sources) Angiotensin 2 Receptor Jessi Start: 09-06-2023 Completed/Discontinued Medications Medication Drug Class(es) Dates Sig (Normalized) Sig (Original) amoxicillin 875 mg / clavulanate 125 mg oral tablet (5 sources) Penicillin-class Antibacterial Start: 11-11-2020 End: 11-21-2020 atenolol 25 mg oral tablet (5 sources) beta-Adrenergic Jessi bacitracin 0.4 unt/mg / neomycin 0.0035 mg/mg / polymyxin b 5 unt/mg topical ointment (5 sources) Aminoglycoside Antibacterial, Polymyxin-class Antibacterial Start: 06-26-2014 End: 07-06-2014 benzonatate 200 mg oral capsule (5 sources) Non-narcotic Antitussive Start: 12-30-2022 End: 01-06-2023 cephalexin 500 mg oral capsule (5 sources) Cephalosporin Antibacterial Start: 06-01-2023 End: 06-11-2023 doxycycline monohydrate 100 mg oral tablet (5 sources) Tetracycline-class Drug Start: 12-30-2022 End: 01-06-2023 fluvastatin 40 mg oral capsule (5 sources) HMG-CoA Reductase Inhibitor Start: 02-20-2013 End: 02-19-2014 hydroCHLOROthiazide 25 mg / losartan potassium 100 mg oral tablet (5 sources) Thiazide Diuretic, Angiotensin 2 Receptor Jessi Start: 09-05-2015 End: 09-23-2015 lovastatin 20 mg oral tablet (5 sources) HMG-CoA Reductase Inhibitor Start: 03-21-2015 End: 09-23-2015 24 hr metoprolol succinate 100 mg extended release oral tablet (5 sources) beta-Adrenergic Jessi Start: 09-05-2015 End: 09-23-2015 mupirocin 0.02 mg/mg topical ointment (5 sources) RNA Synthetase Inhibitor Antibacterial Start: 06-01-2023 End: 07-01-2023 predniSONE 5 mg oral tablet (5 sources) Start: 12-30-2022 End: 01-04-2023 rivaroxaban 20 mg oral tablet (5 sources) Factor Xa Inhibitor ticagrelor 90 mg oral tablet (5 sources) traZODone hydrochloride 50 mg oral tablet (5 sources) Serotonin Reuptake Inhibitor Start: 03-19-2023 End: 04-07-2023 verapamil hydrochloride 240 mg extended release oral tablet (5 sources) Calcium Channel Jessi Start: 09-05-2015 End: 09-23-2015 Problems Active Problems Problem Classification Problem Date Documented Da te Episodic/Chronic Administrative/social admission (20 sources) Patient encounter status; Translations: [Counseling, unspecified] 07-09-2023 Episodic Anxiety disorders (20 sources) Chronic anxiety; Translations: [Anxiety disorder, unspecified] 08-18-2023 Chronic Felix (10 sources) Full thickness burn of finger; Translations: [Burn of third degree of single right finger (nail) except thumb, initial encounter] 07-09-2023 Episodic Cardiac dysrhythmias (10 sources) Palpitations; Translations: [Palpitations] 07-09-2023 Episodic Chronic obstructive pulmonary disease and bronchiectasis (10 sources) Bronchitis; Translations: [Bronchitis, not specified as acute or chronic] 07-09-2023 Episodic Coronary atherosclerosis and other heart disease (20 sources) Multi vessel coronary artery disease; Translations: [Atherosclerotic heart disease of [place] coronary artery without angina pectoris] 07-09-2023 Chronic Deficiency and other anemia (4 sources) Other pancytopenia; Translations: [Other pancytopenia] Onset: 06-04-2022 Chronic Diabetes mellitus without complication (20 sources) Abnormal glucose level; Translations: [Other abnormal glucose] 07-09-2023 Episodic Diseases of white blood cells (20 sources) White blood cell count abnormal; Translations: [Disorder of white blood cells, unspecified] 07-09-2023 Chronic Disorders of lipid metabolism (20 sources) Hyperlipidemia; Translations: [Hyperlipidemia, unspecified] 07-09-2023 Chronic Essential hypertension (20 sources) Good hypertension control; Translations: [Essential (primary) hypertension] 08-18-2023 Chronic Immunizations and screening for infectious disease (15 sources) Requires diphtheria, tetanus and pertussis vaccination; Translations: [Encounter for immunization] 07-09-2023 Episodic Inflammation; infection of eye (except that caused by tuberculosis or sexually transmitteddisease) (5 sources) Chronic conjunctivitis; Translations: [Unspecified chronic conjunctivitis, left eye] 07-26-2017 Chronic Nutritional deficiencies (15 sources) Serum iron low; Translations: [Iron deficiency] 07-09-2023 Episodic Open wounds of extremities (5 sources) Laceration of upper limb; Translations: [Laceration without foreign body of left upper arm, initial encounter] 06-26-2014 Episodic Osteoarthritis (20 sources) Bilateral osteoarthritis of knees; Translations: [Bilateral primary osteoarthritis of knee] 07-09-2023 Chronic Other aftercare (20 sources) H/O: high risk medication; Translations: [Other senior care (current) drug therapy] 07-09-2023 Episodic Other circulatory disease (20 sources) H/O: atrial fibrillation; Translations: [Personal history of other diseases of the circulatory system] Onset: 09-11-2015 08-18-2023 Episodic Other circulatory disease (20 sources) H/O: heart failure; Translations: [Personal history of other diseases of the circulatory system] 08-29-2018 Episodic Other ear and sense organ disorders (10 sources) Sensorineural hearing loss, bilateral; Translations: [Sensorineural hearing loss, bilateral] 07-09-2023 Chronic Other injuries and conditions due to external causes (5 sources) At risk for falls ; Translations: [History of falling] 03-22-2017 Episodic Other male genital disorders (10 sources) Adult hydrocele; Translations: [Hydrocele, unspecified] 07-09-2023 Episodic Other nutritional; endocrine; and metabolic disorders (20 sources) Overweight; Translations: [Overweight] 07-09-2023 Episodic Other screening for suspected conditions (not mental disorders or infectious disease) (20 sources) Screening status; Translations: [Encounter for screening for malignant neoplasm of prostate] 07-09-2023 Episodic Deisy-; endo-; and myocarditis; cardiomyopathy (except that caused by tuberculosis or sexually transmitted disease) (10 sources) Cardiomyopathy; Translations: [Cardiomyopathy, unspecified] 07-09-2023 Chronic Residual codes; unclassified (10 sources) Insomnia; Translations: [Insomnia, unspecified] 07-09-2023 Episodic Skin and subcutaneous tissue infections (20 sources) Cellulitis of finger of right hand; Translations: [Cellulitis of right finger] 07-09-2023 Episodic Thyroid disorders (20 sources) Acquired hypothyroidism; Translations: [Hypothyroidism, unspecified] 07-09-2023 Chronic Past or Other Problems Problem Classification Problem Date Documented Da te Episodic/Chronic Other eye disorders (1 source) Unspecified ectropion of left eye, unspecified eyelid; Translations: [Unspecified ectropion of left eye, unspecified eyelid] Onset: 09-03-2017 Episodic Results Test Name Value Interpretation Reference Range Facil ity Vital Signs Date Time Vital Sign Value Performing Clinician Sachin still 08-18-2023 13:34-0500 [facility].18 [facility]. 08-18-2023 13:34-0500 Body mass index (BMI) [Ratio] 28.82 kg/m2 [facility]. 08-18-2023 13:34-0500 Body surface area Derived from formula 1.95 m2 [facility]. 08-18-2023 13:34-0500 Body weight 83.46 kg Una Overholt [facility] 08-18-2023 13:34-0500 Diastolic blood pressure 65 mm[Hg] Una Overholt [facility] 08-18-2023 13:34-0500 Heart rate 66 /min Una Overholt [facility] [employer] [facility] 08-18-2023 13:34-0500 Systolic blood pressure 122 mm[Hg] [facility] [employer] [facility] 07-09-2023 10:42-0400 Body height 170.18 cm Erika Peres RN [facility], [facility], [facility]. 07-09-2023 10:42-0400 Body mass index (BMI) [Ratio] 28.82 kg/m2 Erika Peres RN [facility], [facility].; [facility], [facility]. 07-09-2023 10:42-0400 Body surface area Derived from formula 1.95 m2 Erika Peres RN [facility], [facility].; [facility], [facility]. 07-09-2023 10:42-0400 Body weight 83.46 kg Erika Peres RN [facility], [facility] [employer] [facility] [place], [facility]. 07-09-2023 10:42-0400 Diastolic blood pressure 73 mm[Hg] Erika Peres RN [facility] [employer] [facility], [facility].; [facility] [employer] [facility], [facility]. 07-09-2023 10:42-0400 Heart rate 60 /min Erika Peres RN [facility] [employer] [facility] [employer] [facility] 07-09-2023 10:42-0400 Systolic blood pressure 112 mm[Hg] Erika Peres RN [facility] [employer] [facility].; [facility] [employer] [facility] 06-02-2023 10:01-0400 Body height 170.18 cm Rachel Higginbotham RN [facility], [facility].; [facility]. 06-02-2023 10:01-0400 Body mass index (BMI) [Ratio] 29.35 kg/m2 Rachel Higginbotham RN [facility], [facility].; [facility], [facility]. 06-02-2023 10:01-0400 Body surface area Derived from formula 1.97 m2 Rachel Higginbotham RN [facility], [facility].; [facility], [facility]. 06-02-2023 10:01-0400 Body temperature 97.7 [degF] Rachel Higginbotham RN [facility], [facility].; [facility], [facility]. 06-02-2023 10:01-0400 Body weight 84.99 kg Rachel Higginbotham RN [facility], [facility].; [facility], [facility]. 06-02-2023 10:01-0400 Diastolic blood pressure 70 mm[Hg] Rachel Higginbotham RN [facility], [facility].; [facility], [facility]. 06-02-2023 10:01-0400 Heart rate 68 /min Rachel Higginbotham RN [facility], [facility].; [facility], [facility]. 06-02-2023 10:01-0400 Inhaled oxygen concentration 21 % Rachel Higginbotham RN [facility], [facility].; [facility], [facility]. 06-02-2023 10:01-0400 SaO2% (BldA) [Mass fraction] 99 % Rachel Higginbotham RN [facility], [facility].; [facility], [facility]. 06-02-2023 10:01-0400 Systolic blood pressure 108 mm[Hg] Rachel Higginbotham RN [facility], [facility] 06-01-2023 13:19-0400 Body height 170.18 cm Erika Peres RN [facility], [employer].; [facility], [facility]. 06-01-2023 13:19-0400 Body mass index (BMI) [Ratio] 29.78 kg/m2 Erika Peres RN [facility], [facility].; [facility]. 06-01-2023 13:19-0400 Body surface area Derived from formula 1.98 m2 Erika Peres RN [facility], [facility].; [facility]. 06-01-2023 13:19-0400 Body temperature 98.5 [degF] Erika Peres RN [facility], [facility].; [facility]. 06-01-2023 13:19-0400 Body weight 86.24 kg Erika Peres RN [facility], [facility].; [facility]. 06-01-2023 13:19-0400 Diastolic blood pressure 82 mm[Hg] Erika Peres RN [facility], [facility].; [facility]. 06-01-2023 13:19-0400 Heart rate 66 /min Erika Peres RN [facility], [facility].; [facility]. 06-01-2023 13:19-0400 Systolic blood pressure 126 mm[Hg] Erika Peres RN [facility], [facility].; [facility]. 04-07-2023 10:38-0400 Body height 170.18 cm Erika Peres RN [facility], [facility].; [facility]. 04-07-2023 10:38-0400 Body mass index (BMI) [Ratio] 29.44 kg/m2 Erika Peres RN [facility], [facility].; [facility], [facility]. 04-07-2023 10:38-0400 Body surface area Derived from formula 1.97 m2 Erika Peres RN [facility], [facility].; [facility], [facility]. 04-07-2023 10:38-0400 Body weight 85.28 kg Erika Peres RN [facility], [facility].; [facility], [facility]. 04-07-2023 10:38-0400 Diastolic blood pressure 70 mm[Hg] Erika Peres RN [facility], [facility].; [facility]. 04-07-2023 10:38-0400 Heart rate 62 /min Erika Peres RN [facility], [facility].; [facility], [facility]. 04-07-2023 10:38-0400 Systolic blood pressure 144 mm[Hg] Erika Peres RN [facility], [facility].; [facility], [facility]. 03-19-2023 11:04-0400 Body height 170.18 cm HODAN GRATE [facility], [facility].; [facility], [facility]. 03-19-2023 11:04-0400 Body mass index (BMI) [Ratio] 29.57 kg/m2 HODAN GRATE [facility], [facility].; [facility], [facility]. 03-19-2023 11:04-0400 Body surface area Derived from formula 1.97 m2 HODAN GRATE [facility], [facility].; [facility], [facility]. 03-19-2023 11:04-0400 Body weight 85.64 kg HODAN GRATE [facility], [facility].; [facility], [facility]. 03-19-2023 11:04-0400 Diastolic blood pressure 66 mm[Hg] HODAN GRATE [facility], [facility].; [facility]. 03-19-2023 11:04-0400 Heart rate 51 /min HODAN GRATE RN [facility], [facility].; [facility], [facility]. 03-19-2023 11:04-0400 Systolic blood pressure 118 mm[Hg] HODAN GRATE RN [facility], [facility].; [facility], [facility]. 12-30-2022 10:47-0400 Body height 170.18 cm Erika Peres RN [facility], [facility].; [facility], [facility]. 12-30-2022 10:47-0400 Body mass index (BMI) [Ratio] 29.13 kg/m2 Erika Peres RN [facility], [facility]. 12-30-2022 10:47-0400 Body surface area Derived from formula 1.96 m2 Erika Peres RN [facility], [facility].; [facility], [facility]. 12-30-2022 10:47-0400 Body temperature 98.8 [degF] Erika Peres RN [facility], [facility]. 12-30-2022 10:47-0400 Body weight 84.37 kg Erika Peres RN [facility], [facility].; [facility]. 12-30-2022 10:47-0400 Diastolic blood pressure 63 mm[Hg] Erika Peres RN [facility], [facility].; [facility]. 12-30-2022 10:47-0400 Heart rate 60 /min Erika Peres RN [facility], [facility].; [facility], [facility]. 12-30-2022 10:47-0400 Inhaled oxygen concentration 21 % Erika Peres RN [facility], [facility].; [facility]. 12-30-2022 10:47-0400 SaO2% (BldA) [Mass fraction] 90 % Erika Peres RN [facility], [facility].; [facility]. 12-30-2022 10:47-0400 Systolic blood pressure 104 mm[Hg] Erika Peres RN [facility], [facility], [facility]. 12-02-2022 09:11-0500 Body height 170.18 cm Erika Peres RN [facility], [facility].; [facility], [facility]. 12-02-2022 09:11-0500 Body mass index (BMI) [Ratio] 28.97 kg/m2 Erika Peres RN [facility], [facility], [facility]. 12-02-2022 09:11-0500 Body surface area Derived from formula 1.96 m2 Erika Peres RN [facility], [facility] 12-02-2022 09:11-0500 Body weight 83.92 kg Erika Peres RN [facility], [facility] 12-02-2022 09:11-0500 Diastolic blood pressure 67 mm[Hg] Erika Peres RN [facility], [facility] 12-02-2022 09:11-0500 Heart rate 45 /min Erika Peres RN [facility], [facility] 12-02-2022 09:11-0500 Systolic blood pressure 115 mm[Hg] Erika Peres RN [facility], [facility] 06-24-2022 10:59-0400 Body height 170.18 cm Rachel Higginbotham RN [facility], [facility] 06-24-2022 10:59-0400 Body mass index (BMI) [Ratio] 28.97 kg/m2 Rachel Higginbotham RN [facility], [facility] 06-24-2022 10:59-0400 Body surface area Derived from formula 1.96 m2 Rachel Higginbotham RN [facility], [facility].; [facility] 06-24-2022 10:59-0400 Body temperature 97.8 [degF] Rachel Higginbotham RN [facility], [facility] 06-24-2022 10:59-0400 Body weight 83.92 kg Rachel Higginbotham RN [facility], [facility] 06-24-2022 10:59-0400 Diastolic blood pressure 64 mm[Hg] Rachel Higginbotham RN [facility], [facility] [employer] [facility] 06-24-2022 10:59-0400 Heart rate 50 /min Rachel Higginbotham RN [facility], [facility] [employer] [facility] 06-24-2022 10:59-0400 Inhaled oxygen concentration 21 % Rachel Higginbotham RN [facility], [facility] 06-24-2022 10:59-0400 SaO2% (BldA) [Mass fraction] 96 % Rachel Higginbotham RN [facility], [facility] 06-24-2022 10:59-0400 Systolic blood pressure 109 mm[Hg] Rachel Higginbotham RN [facility], [facility] 12-10-2021 10:00-0500 Body height 170.18 cm Rachel Higginbotham RN [facility], [facility].; [facility], [facility]. 12-10-2021 10:00-0500 Body mass index (BMI) [Ratio] 29.13 kg/m2 Rachel Higginbotham RN [facility], [facility], [facility]. 12-10-2021 10:00-0500 Body surface area Derived from formula 1.96 m2 Rachel Higginbotham RN [facility], [facility], [facility]. 12-10-2021 10:00-0500 Body temperature 98 [degF] Rachel Higginbotham RN [facility], [facility] 12-10-2021 10:00-0500 Body weight 84.37 kg Rachel Higginbotham RN [facility], [facility] 12-10-2021 10:00-0500 Diastolic blood pressure 75 mm[Hg] Rachel Higginbotham RN [facility] 12-10-2021 10:00-0500 Heart rate 54 /min Rachel Higginbotham RN [facility] 12-10-2021 10:00-0500 Inhaled oxygen concentration 21 % Rachel Higginbotham RN [facility] 12-10-2021 10:00-0500 SaO2% (BldA) [Mass fraction] 95 % Rachel Higginbotham RN [facility], [facility], [facility]. 12-10-2021 10:00-0500 Systolic blood pressure 131 mm[Hg] Rachel Higginbotham RN [facility] 04-28-2021 10:01-0400 Body height 170.18 cm Shea Elizondo RN [facility] 04-28-2021 10:01-0400 Body mass index (BMI) [Ratio] 29.91 kg/m2 Shea Elizondo RN [facility], [facility]. 04-28-2021 10:01-0400 Body surface area Derived from formula 1.98 m2 Shea Elizondo RN [facility], [facility]. 04-28-2021 10:01-0400 Body weight 86.64 kg Shea Elizondo RN [facility], [facility]. 04-28-2021 10:01-0400 Diastolic blood pressure 69 mm[Hg] Shea Elizondo RN [facility], [facility]. 04-28-2021 10:01-0400 Heart rate 54 /min Shea Elizondo RN [facility], [facility]. 04-28-2021 10:01-0400 Systolic blood pressure 125 mm[Hg] Shea Elizondo RN [facility] 11-11-2020 14:44-0500 Body height 170.18 cm Shea Elizondo RN [facility] 11-11-2020 14:44-0500 Body mass index (BMI) [Ratio] 29.06 kg/m2 Shea Elizondo RN [facility] [employer] [facility], [facility].; [facility] 11-11-2020 14:44-0500 Body surface area Derived from formula 1.96 m2 Shea Elizondo RN [facility], [facility]. 11-11-2020 14:44-0500 Body temperature 98.3 [degF] Shea Elizondo RN [facility].; [facility] 11-11-2020 14:44-0500 Body weight 84.17 kg Shea Elizondo RN [facility], [facility]. 11-11-2020 14:44-0500 Diastolic blood pressure 92 mm[Hg] Shea Elizondo RN [facility], [facility].; [facility], [facility]. 11-11-2020 14:44-0500 Heart rate 76 /min Shea Elizondo RN [facility], [facility]. 11-11-2020 14:44-0500 Systolic blood pressure 174 mm[Hg] Shea Elizondo RN [facility], [facility].; [facility], [facility]. 10-28-2020 09:46-0500 Body height 170.18 cm Nighat Wayne [facility], [facility].; [facility], [facility]. 10-28-2020 09:46-0500 Body mass index (BMI) [Ratio] 29.69 kg/m2 Nighat Wayne [facility], [facility].; [facility], [facility]. 10-28-2020 09:46-0500 Body surface area Derived from formula 1.98 m2 Nighat Wayne [facility], [facility].; [facility], [facility]. 10-28-2020 09:46-0500 Body weight 85.99 kg Nighat Wayne [facility], [facility].; [facility], [facility]. 10-28-2020 09:46-0500 Diastolic blood pressure 77 mm[Hg] Nighat Wayne [facility], [facility]. 10-28-2020 09:46-0500 Heart rate 49 /min Nighat Kim [facility] 10-28-2020 09:46-0500 Systolic blood pressure 143 mm[Hg] Nighat Kim [facility] 02-19-2020 09:52-0400 Body height 164.47 cm Shea Elizondo RN [facility] 02-19-2020 09:52-0400 Body mass index (BMI) [Ratio] 31.53 kg/m2 Shea Elizondo RN [facility] [employer] [facility], [facility].; [facility] 02-19-2020 09:52-0400 Body surface area Derived from formula 1.92 m2 Shea Elizondo RN [facility] [employer] [facility].; [facility] 02-19-2020 09:52-0400 Body weight 85.28 kg Shea Elizondo RN [facility] 02-19-2020 09:52-0400 Diastolic blood pressure 72 mm[Hg] Shea Elizondo RN [facility] [employer] [facility] 02-19-2020 09:52-0400 Heart rate 48 /min Shea Elizondo RN [facility] 02-19-2020 09:52-0400 Systolic blood pressure 129 mm[Hg] Shea Elizondo RN [facility] [employer] [facility] [place].; [facility] [employer] [facility] 08-21-2019 10:16-0500 Body height 164.47 cm Rachel Higginbotham RN [facility] [employer] [facility].; [facility] [employer] [facility] [place] 08-21-2019 10:16-0500 Body mass index (BMI) [Ratio] 30.96 kg/m2 Rachel Higginbotham RN [facility] [employer] [facility] [place].; [facility] [employer] [facility] [place] 08-21-2019 10:16-0500 Body surface area Derived from formula 1.91 m2 Rachel Higginbotham RN [facility] [employer] [facility] [place].; [facility] [employer] [employer] 08-21-2019 10:16-0500 Body temperature 97.7 [degF] Rachel Higginbotham RN [facility] [employer] [employer] 08-21-2019 10:16-0500 Body weight 83.73 kg Rachel Higginbotham RN [facility] [employer] [facility] [employer] [facility] 08-21-2019 10:16-0500 Diastolic blood pressure 64 mm[Hg] Rachel Higginbotham RN [facility] [employer] [facility] [place].; [facility] [employer] [facility] 08-21-2019 10:16-0500 Heart rate 48 /min Rachel Higginbotham RN [facility] [employer] [facility].; [facility] [employer] [facility] 08-21-2019 10:16-0500 Systolic blood pressure 115 mm[Hg] Rachel Higginbotham RN [facility] [employer] [facility] [employer] [facility] 02-20-2019 10:58-0400 Body height 164.47 cm Shea Elizondo RN [facility] [employer] [facility] [employer] [facility] 02-20-2019 10:58-0400 Body mass index (BMI) [Ratio] 31.02 kg/m2 Shea Elizondo RN [facility] [employer] [facility] [employer] [facility] 02-20-2019 10:58-0400 Body surface area Derived from formula 1.91 m2 Shea Elizondo RN [facility] [employer] [facility].; [facility] [employer] [employer] 02-20-2019 10:58-0400 Body weight 83.92 kg Shea Elizondo RN [facility] [employer] [facility].; [facility] [employer] [employer] 02-20-2019 10:58-0400 Diastolic blood pressure 65 mm[Hg] Shea Elizondo RN [facility] [employer] [facility] [employer] [employer] 02-20-2019 10:58-0400 Heart rate 65 /min Shea Elizondo RN [facility] [employer], [employer] [facility] [employer] [facility] 02-20-2019 10:58-0400 Systolic blood pressure 113 mm[Hg] Shea [facility].; [facility] [employer] [facility] 08-29-2018 10:40-0500 Body height 164.47 cm Rachel Higginbotham RN [facility] [employer] [facility] 08-29-2018 10:40-0500 Body mass index (BMI) [Ratio] 30.69 kg/m2 Rachel Higginbotham RN [facility] [employer] [facility] [place] 08-29-2018 10:40-0500 Body surface area Derived from formula 1.9 m2 Rachel Higginbotham RN [facility] [employer] [facility].; [facility] [employer] [facility] 08-29-2018 10:40-0500 Body temperature 97.3 [degF] Rachel Higginbotham RN [facility].; [facility] [employer] [facility] 08-29-2018 10:40-0500 Body weight 83.01 kg Rachel Higginbotham RN [facility] [employer] [facility].; [facility] [employer] [facility] 08-29-2018 10:40-0500 Diastolic blood pressure 77 mm[Hg] Rachel Higginbotham RN [facility] [employer] [facility].; [facility] [employer] [facility] 08-29-2018 10:40-0500 Heart rate 53 /min Rachel Higginbotham RN [facility] [employer] [facility] [employer] [facility] 08-29-2018 10:40-0500 Systolic blood pressure 125 mm[Hg] Rachel Higginbotham RN [facility] [employer] [facility].; [facility] [employer] [employer] 04-18-2018 10:26-0400 Body height 164.47 cm Shea Elizondo RN [facility] [employer] [facility] [employer] [employer] 04-18-2018 10:26-0400 Body mass index (BMI) [Ratio] 29.35 kg/m2 Shea Elizondo RN [facility] [employer] [facility] [employer] [employer] 04-18-2018 10:26-0400 Body surface area Derived from formula 1.86 m2 Shea Elizondo RN [facility] [employer] [facility].; [facility] [employer] [facility] 04-18-2018 10:26-0400 Body weight 79.38 kg Shea Elizondo RN [facility] [employer] [facility] [employer] [facility] 04-18-2018 10:26-0400 Diastolic blood pressure 68 mm[Hg] Shea Elizondo RN [facility] [employer] [facility] [employer] [facility] 04-18-2018 10:26-0400 Heart rate 59 /min Shea Elizondo RN [facility] [employer] [facility].; [facility] [employer] [facility] 04-18-2018 10:26-0400 Systolic blood pressure 120 mm[Hg] Shea Elizondo RN [facility] [employer] [facility] 12-13-2017 10:51-0400 Body height 166.37 cm Shea Elizondo RN [facility] [employer] [facility].; [facility] [employer] [facility] 12-13-2017 10:51-0400 Body mass index (BMI) [Ratio] 29.17 kg/m2 Shea Elizondo RN [facility] [employer] [facility].; [facility] [employer] [facility] 12-13-2017 10:51-0400 Body surface area Derived from formula 1.89 m2 Shea Elizondo RN [facility] [employer] [facility] [employer] [facility] 12-13-2017 10:51-0400 Body weight 80.74 kg Shea Elizondo RN [facility] [employer] [facility] [employer] [facility] 12-13-2017 10:51-0400 Diastolic blood pressure 70 mm[Hg] Shea Elizondo RN [facility] [employer] [facility] 12-13-2017 10:51-0400 Heart rate 54 /min Shea Elizondo RN [facility] [place] [employer] [facility] 12-13-2017 10:51-0400 Systolic blood pressure 118 mm[Hg] Shea Elizondo RN [facility] [employer] [facility] [place] [employer] [facility] 08-23-2017 13:14-0500 Body height 165.1 cm Rachel Higginbotham RN [facility] [employer] [facility] 08-23-2017 13:14-0500 Body mass index (BMI) [Ratio] 29.42 kg/m2 Rachel Higginbotham RN [facility] [employer] [facility] [place] 08-23-2017 13:14-0500 Body surface area Derived from formula 1.88 m2 Rachel Higginbotham RN [facility] [employer] [facility] [place] 08-23-2017 13:14-0500 Body temperature 97.9 [degF] Rachel Higginbotham RN [facility] [employer] [facility] [place] 08-23-2017 13:14-0500 Body weight 80.2 kg Rachel Higginbotham RN [facility] [employer] [facility] 08-23-2017 13:14-0500 Diastolic blood pressure 74 mm[Hg] Rachel Higginbotham RN [facility] [employer] [facility] [place] 08-23-2017 13:14-0500 Heart rate 62 /min Racehl Higginbotham RN [facility] [employer] [facility] [place] 08-23-2017 13:14-0500 Systolic blood pressure 136 mm[Hg] Rachel Higginbotham RN [facility] [employer] [facility] 07-26-2017 10:50-0400 Body height 165.1 cm Shea Elizondo RN [facility] [employer] [facility] [employer] [facility] [place] 07-26-2017 10:50-0400 Body mass index (BMI) [Ratio] 29.12 kg/m2 Shea Elizondo RN [facility] [employer] [facility] [employer] [facility] [place] 07-26-2017 10:50-0400 Body surface area Derived from formula 1.87 m2 Shea Elizondo RN [facility] [employer] [facility] [employer] [facility] 07-26-2017 10:50-0400 Body weight 79.38 kg Shea Elizondo RN [facility] [employer] [facility] [place] 07-26-2017 10:50-0400 Diastolic blood pressure 71 mm[Hg] Shea Elizondo RN [facility] [employer] [facility] [place].; [facility] 07-26-2017 10:50-0400 Heart rate 49 /min Shea Elizondo RN [facility] [employer] [facility] [place] [employer] [facility] 07-26-2017 10:50-0400 Systolic blood pressure 119 mm[Hg] Shea Elizondo RN [facility] [employer] [facility] [place] [employer] [facility] [place] 03-22-2017 15:29-0400 Body height 165.1 cm Shea Elizondo RN [facility] [employer] [facility] [place] [employer] [facility] [place] 03-22-2017 15:29-0400 Body mass index (BMI) [Ratio] 30.87 kg/m2 Shea Elizondo RN [facility] [employer] [facility] [place] [employer] [facility] [place] 03-22-2017 15:29-0400 Body surface area Derived from formula 1.92 m2 Shea Elizondo RN [facility] [employer] [facility] [place] [employer] [facility] [place] 03-22-2017 15:29-0400 Body weight 84.14 kg Shea Elizondo RN [facility] [employer] [facility] [place] [employer] [facility] [place] 03-22-2017 15:29-0400 Diastolic blood pressure 79 mm[Hg] Shea Elizondo RN [facility] [employer] [facility] [place] [employer] [facility] [place] 03-22-2017 15:29-0400 Heart rate 66 /min Shea Elizondo RN [facility] [place].; [facility] [employer] [facility] [place] 03-22-2017 15:29-0400 Systolic blood pressure 149 mm[Hg] Shea Elizondo RN [facility] [employer] [facility] [place] 11-11-2015 10:53-0500 Body height 165.1 cm Shea Elizondo RN [facility] 11-11-2015 10:53-0500 Body mass index (BMI) [Ratio] 29.29 kg/m2 Shea Elizondo RN [facility] 11-11-2015 10:53-0500 Body surface area Derived from formula 1.87 m2 Shea Elizondo RN [facility] [employer] [facility] [place] 11-11-2015 10:53-0500 Body weight 79.83 kg Shea Elizondo RN [facility] 11-11-2015 10:53-0500 Diastolic blood pressure 78 mm[Hg] Shea Elizondo RN [facility] [employer] [facility] [place] 11-11-2015 10:53-0500 Heart rate 52 /min Shea Elizondo RN [facility] [employer] [facility] [place] 11-11-2015 10:53-0500 Systolic blood pressure 127 mm[Hg] Shea Elizondo RN [facility] [employer] [facility] [place] [employer] [facility] [place] 10-07-2015 14:50-0500 Body height 167.64 cm Rachel Higginbotham RN [facility] [employer] [facility] [place] [employer] [facility] [place] 10-07-2015 14:50-0500 Body mass index (BMI) [Ratio] 28.57 kg/m2 Rachel Higginbotham RN [facility] [employer] [facility] [place] [employer] [facility] [place] 10-07-2015 14:50-0500 Body surface area Derived from formula 1.9 m2 Rachel Higginbotham RN [facility] [employer] [facility] [place] [employer] [facility] [place] 10-07-2015 14:50-0500 Body temperature 98.6 [degF] Rachel Higginbotham RN [facility] [employer] [facility] [place] [employer] [facility] [place] 10-07-2015 14:50-0500 Body weight 80.29 kg Rachel Higginbotham RN [facility] 10-07-2015 14:50-0500 Diastolic blood pressure 81 mm[Hg] Rachel Higginbotham RN [facility] 10-07-2015 14:50-0500 Heart rate 62 /min Rachel Higginbotham RN [facility] [employer] [facility] [place] 10-07-2015 14:50-0500 Systolic blood pressure 133 mm[Hg] Rachel Higginbotham RN [facility] [employer] [facility] [place] [employer] [facility] [place] 09-23-2015 13:19-0500 Body height 165.1 cm Rachel Higginbotham RN [facility] [employer] [facility] [place] [employer] [facility] [place] 09-23-2015 13:19-0500 Body mass index (BMI) [Ratio] 31.28 kg/m2 Rachel Higginbotham RN [facility] [employer] [facility] [place] 09-23-2015 13:19-0500 Body surface area Derived from formula 1.93 m2 Rachel Higginbotham RN [facility] [employer] [facility] [place] 09-23-2015 13:19-0500 Body temperature 98.2 [degF] Rachel Higginbotham RN [facility] [employer] [facility] [place] 09-23-2015 13:19-0500 Body weight 85.28 kg Rachel Higginbotham RN [facility] [employer] [facility] [place] [employer] [facility] [place] 09-23-2015 13:19-0500 Diastolic blood pressure 110 mm[Hg] Rachel Higginbotham RN [facility] [employer] [facility] [place] [employer] [facility] [place] 09-23-2015 13:19-0500 Heart rate 69 /min Rachel Higginbotham RN [facility] [employer] [facility] [place] [employer] [facility] [place] 09-23-2015 13:19-0500 Systolic blood pressure 219 mm[Hg] Rachel Higginbotham RN [facility], [facility].; [facility] 09-05-2015 10:02-0500 Body height 165.1 cm Shea Eliznodo RN [facility], [facility].; [facility] 09-05-2015 10:02-0500 Body mass index (BMI) [Ratio] 31.28 kg/m2 Shea Elizondo RN [facility], [facility].; [facility] 09-05-2015 10:02-0500 Body surface area Derived from formula 1.93 m2 Shea Elizondo RN [facility].; [facility] 09-05-2015 10:02-0500 Body weight 85.28 kg Shea Elizondo RN [facility], [facility].; [facility], [facility]. 09-05-2015 10:02-0500 Diastolic blood pressure 94 mm[Hg] Shea Elizondo RN [facility], [facility].; [facility] 09-05-2015 10:02-0500 Heart rate 80 /min Shea Elizondo RN [facility].; [facility] 09-05-2015 10:02-0500 Systolic blood pressure 136 mm[Hg] Shea Elizondo RN [facility], [facility].; [facility], [facility]. 04-25-2015 10:34-0400 Body height 167.64 cm Erika Peres RN [facility] [employer] [facility] [place], [facility].; [facility] 04-25-2015 10:34-0400 Body mass index (BMI) [Ratio] 29.7 kg/m2 Erika Peres RN [facility] [employer] [facility] [place], Inc.; [facility] 04-25-2015 10:34-0400 Body surface area Derived from formula 1.93 m2 Erika Peres RN [facility] [employer] [facility] [place], Inc.; [facility] 04-25-2015 10:34-0400 Body weight 83.46 kg Erika Peres RN [facility], [facility].; [facility] 04-25-2015 10:34-0400 Diastolic blood pressure 83 mm[Hg] Erika Peres RN [facility], [facility].; [facility] 04-25-2015 10:34-0400 Heart rate 66 /min Erika Peres RN [facility] 04-25-2015 10:34-0400 Systolic blood pressure 153 mm[Hg] Erika Peres RN [facility].; [facility] 03-21-2015 13:06-0400 Body height 166.37 cm Erika Peres RN [facility], [facility].; [facility] 03-21-2015 13:06-0400 Body mass index (BMI) [Ratio] 30.15 kg/m2 Erika Peres RN [facility].; [facility], [facility]. 03-21-2015 13:06-0400 Body surface area Derived from formula 1.92 m2 Erika Peres RN [facility], [facility].; [facility], [facility]. 03-21-2015 13:06-0400 Body weight 83.46 kg Erika Peres RN [facility], [facility].; [facility] 03-21-2015 13:06-0400 Diastolic blood pressure 107 mm[Hg] Erika Peres RN [facility].; [facility] 03-21-2015 13:06-0400 Heart rate 70 /min Erika Peres RN [facility].; [facility] 03-21-2015 13:06-0400 Systolic blood pressure 194 mm[Hg] Erika Peres RN [facility] [employer] [facility] [place], Inc.; [facility] [employer] [facility] [place], Inc. 09-13-2014 10:36-0500 Body height 163.83 cm SETH KIM [facility] [employer] [facility] [place], Inc.; [facility], [facility]. 09-13-2014 10:36-0500 Body mass index (BMI) [Ratio] 31.6 kg/m2 SETH Singleton KIM [employer] [facility] [place], Inc.; [facility] [employer], [employer] 09-13-2014 10:36-0500 Body surface area Derived from formula 1.91 m2 SETH KIM [facility] [employer] [facility] [place], Inc.; [facility] [employer] [facility] [place], Inc. 09-13-2014 10:36-0500 Body weight 84.82 kg SETH KIM [facility] [employer] [facility] [place], Inc.; [facility] [employer] [facility] [place], Inc. 09-13-2014 10:36-0500 Diastolic blood pressure 83 mm[Hg] SETH Singleton KIM [facility] [employer] [facility] [place], Inc.; [facility] [employer] [facility] [place], [employer]. 09-13-2014 10:36-0500 Heart rate 49 /min SETH Singleton KIM [facility] [employer] [facility] [place], Inc.; [facility] [employer] [facility] [place], [employer]. 09-13-2014 10:36-0500 Systolic blood pressure 137 mm[Hg] SETH KIM [facility] [employer] [facility] [place], Inc.; [facility] [employer] [facility] [place], Inc. 06-26-2014 11:02-0400 Body height 163.83 cm Erika Peres RN [employer] [facility] [place] [employer] [facility] [place], Inc[employer] 06-26-2014 11:02-0400 Body mass index (BMI) [Ratio] 31.1 kg/m2 Erika Peres RN [employer] [facility] [place], Inc.; [facility] [employer] [facility] [place], Inc. 06-26-2014 11:02-0400 Body surface area Derived from formula 1.9 m2 Erika Peres RN [employer] [facility] [place] [employer].; [facility] [employer], Inc[employer] 06-26-2014 11:02-0400 Body weight 83.46 kg Erika Peres RN [employer] [facility] [place], [employer].; [facility] [employer] [facility] [place], Inc. 06-26-2014 11:02-0400 Diastolic blood pressure 94 mm[Hg] Erika Peres RN [employer] [facility] [place], Inc.; [facility] [employer] [facility] [place], Inc. 06-26-2014 11:02-0400 Heart rate 58 /min Erika Peres RN [employer] [facility] [place], [employer].; [facility] [employer] [facility] [place], [employer]. 06-26-2014 11:02-0400 Systolic blood pressure 203 mm[Hg] Erika Peres RN [facility], [facility].; [facility] 02-19-2014 10:48-0400 Body height 167.64 cm Rachel Higginbotham RN [facility], [facility].; [facility] [employer] [facility] [place], Inc. 02-19-2014 10:48-0400 Body mass index (BMI) [Ratio] 30.51 kg/m2 Rachel Higginbotham RN [facility], [facility].; [facility] [employer] [facility] [place], Inc. 02-19-2014 10:48-0400 Body surface area Derived from formula 1.95 m2 Rachel Higginbotham RN [facility], [facility].; [facility] 02-19-2014 10:48-0400 Body temperature 98.3 [degF] Rachel Higginbotham RN [facility] [employer] [facility] [place], Inc.; [facility] [employer] [facility] [place], [facility]. 02-19-2014 10:48-0400 Body weight 85.73 kg Rachel Higginbotham RN [facility] [employer] [facility] [place], [facility].; [facility] [employer] [facility] [place], [facility]. 02-19-2014 10:48-0400 Diastolic blood pressure 81 mm[Hg] Rachel Higginbotham RN [facility] [employer] [facility] [place], Inc.; [facility] [employer] [facility] [place], Inc. 02-19-2014 10:48-0400 Heart rate 49 /min Rachel Higginbotham RN [facility] [employer] [facility] [place], Inc.; [facility] [employer] [facility] [place], [facility]. 02-19-2014 10:48-0400 Systolic blood pressure 151 mm[Hg] Rachel Higginbotham RN [facility] [employer] [facility] [place], Inc.; [facility] [employer] [facility] [place], [facility]. 11-21-2013 09:59-0500 Body height 167.64 cm Shea Elizondo RN [facility] [employer] [facility] [place], [employer].; [facility] [employer] [facility] [place], Inc. 11-21-2013 09:59-0500 Body mass index (BMI) [Ratio] 30.51 kg/m2 Shea [facility] [place], Inc.; [facility] [employer] [facility] [place], Inc. 11-21-2013 09:59-0500 Body surface area Derived from formula 1.95 m2 Shea Elizondo RN [facility], [facility].; [facility] 11-21-2013 09:59-0500 Body weight 85.73 kg Shea Elizondo RN [facility], [facility].; [facility] 11-21-2013 09:59-0500 Diastolic blood pressure 91 mm[Hg] Shea Elizondo RN [facility], [facility].; [facility] 11-21-2013 09:59-0500 Heart rate 76 /min Shea Elizondo RN [facility] [employer] [facility] [place], Inc.; [facility], [facility]. 11-21-2013 09:59-0500 Systolic blood pressure 155 mm[Hg] Shea Elizondo RN [facility] [employer] [facility] [place], Inc.; [facility] [employer] [facility] [place], Inc. 08-21-2013 10:11-0500 Body height 167.64 cm Shea Elizondo RN [facility] [employer] [facility] [place], Inc.; [facility] 08-21-2013 10:11-0500 Body mass index (BMI) [Ratio] 29.7 kg/m2 Shea Elizondo RN [facility] [employer] [facility] [place], Inc.; [facility] 08-21-2013 10:11-0500 Body surface area Derived from formula 1.93 m2 Shea Elizondo RN [facility] [employer] [facility] [place], Inc.; [facility] [employer] [facility] [place], Inc. 08-21-2013 10:11-0500 Body weight 83.46 kg Shea Elizondo RN [facility] [employer] [facility] [place], Inc.; [facility] [employer] [facility] [place], Inc. 08-21-2013 10:11-0500 Diastolic blood pressure 91 mm[Hg] Shea Elizondo RN [facility] [employer] [facility] [place], Inc.; [facility] [employer] [facility] [place], Inc. 08-21-2013 10:11-0500 Heart rate 80 /min Shea Elizondo RN [facility] [employer] [facility] [place], Inc.; [facility] [employer] [facility] [place], [employer]. 08-21-2013 10:11-0500 Systolic blood pressure 157 mm[Hg] Shea Elizondo RN [facility], [facility].; [facility]. 02-20-2013 08:35-0400 Body height 167.64 cm Erika Peres RN [facility], [facility].; [facility] 02-20-2013 08:35-0400 Body mass index (BMI) [Ratio] 28.73 kg/m2 Erika Peres RN [facility], [facility].; [facility], [facility]. 02-20-2013 08:35-0400 Body surface area Derived from formula 1.9 m2 Erika Peres RN [facility], [facility].; [facility]. 02-20-2013 08:35-0400 Body weight 80.74 kg Erika Peres RN [facility], [facility].; [facility], [facility]. 02-20-2013 08:35-0400 Diastolic blood pressure 66 mm[Hg] Erika Peres RN [facility], [facility].; [facility], [facility]. 02-20-2013 08:35-0400 Heart rate 51 /min Erika Peres RN [facility], [facility].; [facility], [facility]. 02-20-2013 08:35-0400 Systolic blood pressure 110 mm[Hg] Erika Peres RN [facility], [facility].; [facility], [facility]. 08-11-2012 09:29-0500 Body height 167 cm SETH Singleton [facility], [facility].; [facility], [facility]. 08-11-2012 09:29-0500 Body mass index (BMI) [Ratio] 30.01 kg/m2 SETH Singleton [facility], [facility].; [facility], [facility]. 08-11-2012 09:29-0500 Body surface area Derived from formula 1.93 m2 SETH Singleton [facility], [facility].; [facility] [employer] [facility] [place], [facility]. 08-11-2012 09:29-0500 Body weight 83.69 kg SETH KIM [facility], [facility].; [facility] [employer] [facility] [place], Inc. 08-11-2012 09:29-0500 Diastolic blood pressure 65 mm[Hg] SETH Singleton [facility], Inc.; [facility], [facility]. 08-11-2012 09:29-0500 Heart rate 53 /min SETH Singleton [facility], Inc.; [facility] 08-11-2012 09:29-0500 Systolic blood pressure 114 mm[Hg] SETH Singleton [facility], Inc.; [facility] 01-11-2012 10:15-0400 Body height 167.64 cm Shea Elizondo RN [facility] [employer] [facility] [place], Inc.; [facility] 01-11-2012 10:15-0400 Body mass index (BMI) [Ratio] 29.54 kg/m2 Shea Elizondo RN [facility] [employer] [facility] [place], Inc.; [facility], [facility]. 01-11-2012 10:15-0400 Body surface area Derived from formula 1.93 m2 Shea Elizondo RN [facility] [employer] [facility] [place], [facility].; [facility] [employer] [facility] [place], [facility]. 01-11-2012 10:15-0400 Body weight 83.01 kg Shea Elizondo RN [facility] [employer] [facility] [place], [facility].; [facility], [facility]. 01-11-2012 10:15-0400 Diastolic blood pressure 85 mm[Hg] Shea Elizondo RN [facility] [employer] [facility] [place], Inc.; [facility] [employer] [facility] [place], Inc. 01-11-2012 10:15-0400 Heart rate 61 /min Shea Elizondo RN [facility] [employer] [facility] [place], Inc.; [facility] [employer] [facility] [place], [facility]. 01-11-2012 10:15-0400 Systolic blood pressure 137 mm[Hg] Shea Elizondo RN [facility] [employer] [facility] [place], [employer] [facility] [employer] [facility] [place], Inc. 08-06-2011 09:00-0400 Body height 167.64 cm SETH Singleton [facility], Inc.; [facility] [employer] [facility] [place], Inc. 08-06-2011 09:00-0400 Body mass index (BMI) [Ratio] 29.54 kg/m2 SETH Singleton [facility], Inc.; [facility] 08-06-2011 09:00-0400 Body surface area Derived from formula 1.93 m2 SETH Singleton [facility], Inc.; [facility] 08-06-2011 09:00-0400 Body weight 83.01 kg SETH KIM [facility], [facility].; [facility] 08-06-2011 09:00-0400 Diastolic blood pressure 89 mm[Hg] SETH Singleton [facility], Inc.; [facility] 08-06-2011 09:00-0400 Heart rate 57 /min SETH Singleton [facility], Inc.; [facility] 08-06-2011 09:00-0400 Systolic blood pressure 174 mm[Hg] SETH KIM [facility], [facility].; [facility] 02-16-2011 10:30-0400 Body weight 83.92 kg Shea Elizondo RN [facility], [facility].; [facility], [facility]. 02-16-2011 10:30-0400 Diastolic blood pressure 69 mm[Hg] Shea Elizondo RN [facility] [employer] [facility] [place], Inc.; [facility], [facility]. 02-16-2011 10:30-0400 Heart rate 60 /min Shea Elizondo RN [facility] [employer] [facility] [place], Inc.; [facility] 02-16-2011 10:30-0400 Systolic blood pressure 107 mm[Hg] Shea Elizondo RN [facility] [employer] [facility] [place], Inc.; [facility] [employer] [facility] [place], Inc. 11-10-2010 09:56-0500 Body height 167.64 cm Rachel Higginbotham RN [facility] [employer] [facility] [place], [facility].; [facility] [employer] [facility] [place], Inc. 11-10-2010 09:56-0500 Body mass index (BMI) [Ratio] 30.34 kg/m2 Rachel Higginbotham RN [facility] [employer] [facility] [place], Inc.; [facility] 11-10-2010 09:56-0500 Body surface area Derived from formula 1.95 m2 Rachel Higginbotham RN [facility], [facility].; [facility] 11-10-2010 09:56-0500 Body temperature 98 [degF] Rachel Higginbotham RN [facility], [facility].; [facility] 11-10-2010 09:56-0500 Body weight 85.28 kg Rachel Higginbotham RN [facility], [facility].; [facility] 11-10-2010 09:56-0500 Diastolic blood pressure 99 mm[Hg] Rachel Higginbotham RN [facility], [facility] 11-10-2010 09:56-0500 Heart rate 58 /min Rachel Higginbotham RN [facility], [facility].; [facility] 11-10-2010 09:56-0500 Systolic blood pressure 167 mm[Hg] Rachel Higginbotham RN [facility], [facility].; [facility] 07-28-2010 09:42-0400 Body height 166.37 cm [facility], [facility].; [facility] 07-28-2010 09:42-0400 Body mass index (BMI) [Ratio] 30.81 kg/m2 [facility], [facility].; [facility] 07-28-2010 09:42-0400 Body surface area Derived from formula 1.94 m2 AIRAM [facility], [facility].; [facility] 07-28-2010 09:42-0400 Body weight 85.28 kg AIRAM [facility], Inc.; [facility] 07-28-2010 09:42-0400 Diastolic blood pressure 85 mm[Hg] AIRAM [facility], Inc.; [facility] 07-28-2010 09:42-0400 Heart rate 55 /min [facility] 07-28-2010 09:42-0400 Systolic blood pressure 159 mm[Hg] [facility] Encounters Encounter Date Encounter Type Care Provider Facility Start: 11-15-2023 End: 11-15-2023 OMARI BATESSenex BiotechnologyTETTER LIBRARY CLERK [employer] [facility] Phone[facility] Start: 11-01-2023 End: 11-01-2023 ambulatory EMMETT [facility] Start: 08-18-2023 End: 08-18-2023 Office outpatient visit 10 minutes OMARI ELLISONER LIBRARY CLERK [employer] [facility] Start: 07-12-2023 End: 07-12-2023 OMARI LimaTETTER LIBRARY CLERK [employer] [facility] Start: 07-09-2023 End: 07-09-2023 ambulatory [facility] Start: 07-09-2023 End: 07-09-2023 OMARI HOSenex BiotechnologyTETTER LIBRARY CLERK [employer] [facility] Start: 07-09-2023 End: 07-09-2023 Office outpatient visit 10 minutes OMARI MEIERTETTER LIBRARY CLERK [employer] [facility] Phone[facility] Start: 06-02-2023 End: 06-02-2023 Office outpatient visit 15 minutes OMARI HOFSTETTER LIBRARY CLERK [employer] [facility] Start: 06-01-2023 End: 06-01-2023 Office outpatient visit 15 minutes OMARI HOFSTETTER LIBRARY CLERK [employer] [facility] Start: 06-01-2023 End: 06-01-2023 OMARI HOFSTETTER LIBRARY CLERK [employer] Work Phone: [facility], [employer]. Start: 04-07-2023 End: 04-07-2023 Office outpatient visit 10 minutes OMARI HOFSTETTER LIBRARY CLERK [employer] Work Phone: [facility] Start: 03-24-2023 End: 03-24-2023 OMARI HOFSTETTER LIBRARY CLERK [employer] Work Phone: [facility] Start: 03-19-2023 End: 03-19-2023 Office outpatient visit 10 minutes OMARI HOFSTETTER LIBRARY CLERK [employer] Work Phone: [facility], [employer]. Start: 02-24-2023 End: 02-24-2023 OMARI HOFSTETTER LIBRARY CLERK [employer] Work Phone: [facility] Start: 01-04-2023 End: 01-04-2023 OMARI HOFSTETTER LIBRARY CLERK [employer] Work Phone: [facility] Start: 12-30-2022 End: 12-30-2022 Office outpatient visit 10 minutes OMARI HOFSTETTER LIBRARY CLERK [employer] Work Phone: [facility], [employer] Start: 12-02-2022 End: 12-02-2022 Office outpatient visit 10 minutes OMARI HOFSTETTER LIBRARY CLERK [employer] Work Phone: [facility] [employer] [facility] [place], [employer]. Start: 09-11-2022 End: 09-11-2022 OMARI HOFSTETTER LIBRARY CLERK [employer] Work Phone: [facility] [employer] [facility] [place], [employer]. Start: 06-24-2022 End: 06-24-2022 Office outpatient visit 10 minutes OMARI HOFSTETTER LIBRARY CLERK [employer] [facility] Phone[facility] Start: 06-12-2022 End: 06-12-2022 OMARI HOFSTETTER LIBRARY CLERK [employer] Work Phone[facility] Start: 06-10-2022 End: 06-10-2022 OMARI HOFSTETTER LIBRARY CLERK [employer] Work Phone: [facility] Start: 06-05-2022 End: 06-05-2022 OMARI HOFSTETTER LIBRARY CLERK [employer] Work Phone: [facility] Start: 06-04-2022 End: 06-09-2022 ashleigh SIMENTAL MD Facility:A Start: 03-23-2022 End: 03-23-2022 OMARI HOFSTETTER LIBRARY CLERK [employer] Work Phone: [facility] Start: 03-11-2022 End: 03-11-2022 OMARI HOFSTETTER LIBRARY CLERK TALKING BOOKS-C Work Phone: [facility]. Start: 03-09-2022 End: 03-09-2022 OMARI HOFSTETTER LIBRARY CLERK TALKING BOOKS-C Work Phone[facility] Start: 02-21-2022 End: 02-21-2022 OMARI HOFSTETTER LIBRARY CLERK TALKING BOOKS-C Work Phone: [facility] Start: 02-18-2022 End: 02-18-2022 OMARI HOFSTETTER LIBRARY CLERK TALKING BOOKS-C Work Phone: [facility] [employer] [facility] [place]. Start: 02-16-2022 End: 02-16-2022 OMARI HOFSTETTER LIBRARY CLERK TALKING BOOKS-C Work Phone: [facility] [employer] [facility] [place]. Start: 01-07-2022 End: 01-07-2022 OMARI HOFSTETTER LIBRARY CLERK TALKING BOOKS-C Work Phone: [facility]. Start: 01-05-2022 End: 01-05-2022 OMARI PAULOMICKIETTER LIBRARY CLERK TALKING BOOKS-C Work Phone: [facility]. Start: 01-05-2022 End: 01-05-2022 OMARI HOCLAIRETETTER LIBRARY CLERK TALKING BOOKS-C Work Phone: [facility] Start: 12-11-2021 End: 12-11-2021 OMARI HOCLAIRETETTER LIBRARY CLERK TALKING BOOKS-C Work Phone: [facility]. Start: 12-10-2021 End: 12-10-2021 Office outpatient visit 10 minutes OMARI HOCLAIRETETTER LIBRARY CLERK TALKING BOOKS-C Work Phone[facility] Start: 10-17-2021 End: 10-17-2021 OMARI HOCLAIRETETTER LIBRARY CLERK TALKING BOOKS-C Work Phone[facility] Start: 08-14-2021 End: 08-14-2021 OMARI HOCLAIRETETTER LIBRARY CLERK TALKING BOOKS-C Work Phone[facility] Start: 06-27-2021 End: 06-27-2021 OMARI HOCLAIRETETTER LIBRARY CLERK TALKING BOOKS-C Work Phone: [facility] Start: 06-23-2021 End: 06-23-2021 OMARI HOFSTETTER LIBRARY CLERK TALKING BOOKS-C Work Phone[facility] Start: 06-19-2021 End: 06-19-2021 OMARI HOFSTETTER LIBRARY CLERK TALKING BOOKS-C Work Phone[facility] Start: 04-28-2021 End: 04-28-2021 Office outpatient visit 10 minutes OMARI HOFSTETTER LIBRARY CLERK TALKING BOOKS-C Work Phone[facility] Start: 04-21-2021 End: 04-21-2021 OMARI HOCLAIRETETTER LIBRARY CLERK TALKING BOOKS-C Work Phone: [facility] Start: 2021 End: 2021 OMARI HOFSTETTER LIBRARY CLERK TALKING BOOKS-C Work Phone: [facility], [employer]. Start: 01-02-2021 End: 01-02-2021 OMARI HOCLAIRETETTER LIBRARY CLERK TALKING BOOKS-C Work Phone: [facility], [employer]. Start: 11-14-2020 End: 11-14-2020 OMARI HOCLAIRETETTER LIBRARY CLERK TALKING BOOKS-C Work Phone: [facility]. Start: 11-11-2020 End: 11-11-2020 Office outpatient visit 15 minutes OMARI MEIERTETTER LIBRARY CLERK TALKING BOOKS-C Work Phone[facility] Start: 10-29-2020 End: 10-29-2020 OMARI HOFSTETTER LIBRARY CLERK TALKING BOOKS-C Work Phone: [facility] Start: 10-28-2020 End: 10-28-2020 Office outpatient visit 10 minutes OMARI HOFSTETTER LIBRARY CLERK TALKING BOOKS-C Work Phone[facility] Start: 08-12-2020 End: 08-12-2020 OMARI HOFSTETTER LIBRARY CLERK TALKING BOOKS-C Work Phone: [facility], [employer]. Start: 07-12-2020 End: 07-12-2020 OMARI HOFSTETTER LIBRARY CLERK TALKING BOOKS-C Work Phone: [facility], [employer]. Start: 04-19-2020 End: 04-19-2020 OMARI HOFSTETTER LIBRARY CLERK TALKING BOOKS-C Work Phone: [facility] [employer] [facility] [place]. Start: 02-29-2020 End: 02-29-2020 OMARI ELLISONER LIBRARY CLERK TALKING BOOKS-C Work Phone: [facility] [employer] [facility] [place]. Start: 02-19-2020 End: 02-19-2020 Office outpatient visit 10 minutes OMARI SAMUELS LIBRARY CLERK TALKING BOOKS-C Work Phone: [employer] [facility] [employer] Start: 12-29-2019 End: 12-29-2019 OMARI CRABTREETTER LIBRARY CLERK TALKING BOOKS-C Work Phone: [facility] [employer] [facility] [place] [facility]. Start: 11-10-2019 End: 11-10-2019 OMARI CRABTREETTER LIBRARY CLERK TALKING BOOKS-C Work Phone: [facility] [employer] [facility] [place] [facility]. Start: 09-01-2019 End: 09-01-2019 OMARI ELLISONER LIBRARY CLERK TALKING BOOKS-C Work Phone: [facility] [employer]. Start: 08-29-2019 End: 08-29-2019 OMARI CRABTREETTER LIBRARY CLERK TALKING BOOKS-C Work Phone: [facility] [employer] [facility] [place] [facility]. Start: 08-22-2019 End: 08-22-2019 OMARI ELLISONER LIBRARY CLERK TALKING BOOKS-C Work Phone: [facility] [employer] [facility] [place] [facility]. Start: 08-21-2019 End: 08-21-2019 OMARI ELLISONER LIBRARY CLERK TALKING BOOKS-C Work Phone: [facility] [employer] [facility] [place] [facility]. Start: 08-21-2019 End: 08-21-2019 Patient encounter status OMARI ELLISONER LIBRARY CLERK TALKING BOOKS-C Work Phone: [facility] COROZAL Spotie [facility] [employer]. Start: 08-21-2019 End: 08-21-2019 OMARI CRABTREETTER LIBRARY CLERK TALKING BOOKS-C Work Phone: [facility]. Start: 08-12-2019 End: 08-13-2019 OMARI CRABTREETTER LIBRARY CLERK TALKING BOOKS-C Work Phone: [facility] [employer] [facility] [place], [facility] Start: 07-03-2019 End: 07-03-2019 OMARI CRABTREETTER LIBRARY CLERK TALKING BOOKS-C Work Phone: [facility], Inc[facility] Start: 05-08-2019 End: 05-08-2019 OMARI HOMICKIETTER LIBRARY CLERK TALKING BOOKS-C Work Phone: [facility], [facility] Start: 04-07-2019 End: 04-07-2019 OMARI HOFSTETTER LIBRARY CLERK TALKING BOOKS-C Work Phone: [facility], [facility] Start: 03-09-2019 End: 03-09-2019 OMARI CRABTREETTER LIBRARY CLERK TALKING BOOKS-C Work Phone: [facility], [facility] Start: 02-20-2019 End: 02-20-2019 Office outpatient visit 15 minutes OMARI CRABTREETTER LIBRARY CLERK TALKING BOOKS-C Work Phone: [facility], [facility] Start: 02-03-2019 End: 02-03-2019 OMARI CRABTREETTER LIBRARY CLERK TALKING BOOKS-C Work Phone: [facility], [facility] Start: 01-30-2019 End: 01-30-2019 OMARI MEIERTETTER LIBRARY CLERK TALKING BOOKS-C Work Phone: [facility], [employer] Start: 01-06-2019 End: 01-06-2019 OMARI HOCLAIRETETTER LIBRARY CLERK TALKING BOOKS-C Work Phone: [facility] [employer] [facility] [place], [facility] Start: 12-16-2018 End: 12-16-2018 OMARI HOFSTETTER LIBRARY CLERK TALKING BOOKS-C Work Phone: [facility] [employer] [facility] [place], [facility] Start: 12-14-2018 End: 12-14-2018 OMARI HOFSTETTER LIBRARY CLERK TALKING BOOKS-C Work Phone: [facility] Start: 10-19-2018 End: 10-19-2018 OMARI ELLISONER LIBRARY CLERK TALKING BOOKS-C Work Phone: [facility], [facility] Start: 10-19-2018 End: 10-19-2018 OMARI CRABTREETTER LIBRARY CLERK TALKING BOOKS-C Work Phone: [facility], [facility] Start: 09-15-2018 End: 09-15-2018 OMARI CRABTREETTER LIBRARY CLERK TALKING BOOKS-C Work Phone: [facility], [facility] Start: 08-30-2018 End: 08-30-2018 OMARI CRABTREETTER LIBRARY CLERK TALKING BOOKS-C Work Phone: [facility], [facility] Start: 08-29-2018 End: 08-29-2018 Office outpatient visit 15 minutes OMARI CRABTREETTER LIBRARY CLERK TALKING BOOKS-C Work Phone: [facility], [facility] Start: 08-29-2018 End: 08-29-2018 Patient encounter status Rachel Higginbotham RN [facility], [facility] Start: 08-01-2018 End: 08-01-2018 OMARI CRABTREETTER LIBRARY CLERK TALKING BOOKS-C Work Phone: [facility], [facility] Start: 05-31-2018 End: 05-31-2018 OMARI CRABTREETTER LIBRARY CLERK TALKING BOOKS-C Work Phone: [facility], [facility] Start: 04-19-2018 End: 04-19-2018 OMARI CRABTREETTER LIBRARY CLERK TALKING BOOKS-C Work Phone: [facility] Start: 04-18-2018 End: 04-18-2018 Patient encounter status OMARI CRABTREETTER LIBRARY CLERK TALKING BOOKS-C Work Phone: [facility] Start: 04-18-2018 End: 04-18-2018 Periodic preventive med est patient 65yrs& older OMARI ELLISONER LIBRARY CLERK TALKING BOOKS-C Work Phone: [facility] [employer] [facility] [place], [facility] Start: 04-11-2018 End: 04-11-2018 OMARI CRABTREETTER LIBRARY CLERK TALKING BOOKS-C Work Phone: [facility] [employer] [facility] [place], [employer] Start: 03-25-2018 End: 03-25-2018 OMARI CRABTREETTER LIBRARY CLERK TALKING BOOKS-C Work Phone: [facility] [employer] [facility] [place], [employer] Start: 03-10-2018 End: 03-10-2018 OMARI HOMICKIETTER LIBRARY CLERK TALKING BOOKS-C Work Phone: [facility] [employer] [facility] [place], [facility] Start: 03-10-2018 End: 03-10-2018 OMARI MEIERTETTER LIBRARY CLERK TALKING BOOKS-C Work Phone: [facility] [employer] [facility] [place], [employer] Start: 01-03-2018 End: 01-03-2018 OMARI MEIERTETTER LIBRARY CLERK TALKING BOOKS-C Work Phone: [facility] [employer] [facility] [place], [employer] Start: 12-22-2017 End: 12-22-2017 OMARI CRABTREETTER LIBRARY CLERK TALKING BOOKS-C Work Phone: [facility] [employer] [facility] [place], [employer] Start: 12-13-2017 End: 12-13-2017 Office outpatient visit 15 minutes OMARI CRABTREETTER LIBRARY CLERK TALKING BOOKS-C Work Phone: [facility] [employer] [facility] [place], [employer] Start: 12-06-2017 End: 12-06-2017 OMARI HOCLAIRETETTER LIBRARY CLERK TALKING BOOKS-C Work Phone: [facility] [employer] Start: 10-28-2017 End: 10-28-2017 OMARI MEIERTETTER LIBRARY CLERK TALKING BOOKS-C Work Phone: [facility] [employer] [facility] [place], [employer] Start: 10-14-2017 End: 10-14-2017 OMARI HOFSTETTER LIBRARY CLERK TALKING BOOKS-C Work Phone: [facility] [employer] Start: 09-23-2017 End: 09-23-2017 OMARI SAMUELS LIBRARY CLERK TALKING BOOKS-C Work Phone: [facility] [employer] [facility] [place], [employer] Start: 09-20-2017 End: 09-20-2017 OMARI CRABTREETTER LIBRARY CLERK TALKING BOOKS-C Work Phone: [facility] [employer] [facility] [place], [employer] Start: 09-13-2017 End: 09-13-2017 OMARI CRABTREETTER LIBRARY CLERK TALKING BOOKS-C Work Phone: [facility] [employer] [facility] [place], [employer] Start: 09-03-2017 End: 09-03-2017 [facility] Start: 08-23-2017 End: 08-23-2017 Office outpatient visit 10 minutes OMARI CRABTREETTER LIBRARY CLERK TALKING BOOKS-C Work Phone: [facility] [employer] [facility] [place], [employer] Start: 08-23-2017 End: 08-23-2017 Preprocedural examination done OMARI CRABTREETTER LIBRARY CLERK TALKING BOOKS-C Work Phone: [facility] [employer] Spotie [facility] [employer] Start: 08-09-2017 End: 08-09-2017 OMARI CRABTREETTER LIBRARY CLERK TALKING BOOKS-C Work Phone: [facility] [employer] Start: 08-02-2017 End: 08-02-2017 OMARI CRABTREETTER LIBRARY CLERK TALKING BOOKS-C Work Phone: [facility] [employer] [facility] [place], [employer] Start: 07-27-2017 End: 07-27-2017 OMARI CRABTREETTER LIBRARY CLERK TALKING BOOKS-C Work Phone: [facility] [employer] Start: 07-26-2017 End: 07-26-2017 Office outpatient visit 15 minutes OMARI CRABTREETTER LIBRARY CLERK TALKING BOOKS-C Work Phone: [employer] [facility] [employer] Start: 05-25-2017 End: 05-25-2017 OMARI HOMICKIETTER LIBRARY CLERK TALKING BOOKS-C Work Phone: [facility], [facility] Start: 05-14-2017 End: 05-14-2017 OMARI HOCLAIRETETTER LIBRARY CLERK TALKING BOOKS-C Work Phone: [facility], [employer] Start: 04-14-2017 End: 04-15-2017 OMARI HOCLAIRETETTER LIBRARY CLERK TALKING BOOKS-C Work Phone: [facility], [employer] Start: 03-23-2017 End: 03-23-2017 OMAIR HOFSTETTER LIBRARY CLERK TALKING BOOKS-C Work Phone: [facility], [employer] Start: 03-22-2017 End: 03-22-2017 Office outpatient visit 15 minutes OMARI HOCLAIRETETTER LIBRARY CLERK TALKING BOOKS-C Work Phone: [facility], [employer] Start: 10-13-2016 End: 10-13-2016 OMARI HOCLAIRETETTER LIBRARY CLERK TALKING BOOKS-C Work Phone: [facility], [employer]. Start: 09-15-2016 End: 09-15-2016 OMARI HOFSTETTER LIBRARY CLERK TALKING BOOKS-C Work Phone: [facility], [employer]. Start: 11-11-2015 End: 11-11-2015 Office outpatient visit 10 minutes OMARI MEIERTETTER LIBRARY CLERK TALKING BOOKS-C Work Phone: [facility], [employer] Start: 10-08-2015 End: 10-08-2015 OMARI HOFSTETTER LIBRARY CLERK TALKING BOOKS-C Work Phone: [facility], [employer] Start: 10-07-2015 End: 10-07-2015 OMARI HOFSTETTER LIBRARY CLERK TALKING BOOKS-C Work Phone: [facility] [employer] [facility] [place], [employer] Start: 10-07-2015 End: 10-07-2015 Office outpatient visit 15 minutes OMARI HOFSTETTER LIBRARY CLERK TALKING BOOKS-C Work Phone[facility] Start: 09-30-2015 End: 09-30-2015 OMARI CRABTREETTER LIBRARY CLERK TALKING BOOKS-C Work Phone: [facility] Start: 09-23-2015 End: 09-23-2015 Office outpatient visit 15 minutes OMARI CRABTREETTER LIBRARY CLERK TALKING BOOKS-C Work Phone[facility] Start: 09-23-2015 End: 09-23-2015 OMARI HOCLAIRETETTER LIBRARY CLERK TALKING BOOKS-C Work Phone: [facility] Start: 09-17-2015 End: 09-20-2015 OMARI HOCLAIRETETTER LIBRARY CLERK TALKING BOOKS-C Work Phone: [facility], [employer]. Start: 09-13-2015 End: 09-13-2015 OMARI HOCLAIRETETTER LIBRARY CLERK TALKING BOOKS-C Work Phone: [facility] Start: 09-12-2015 End: 09-12-2015 OMARI HOFSTETTER LIBRARY CLERK TALKING BOOKS-C Work Phone: [facility] [employer] [facility] [place]. Start: 09-11-2015 End: 09-11-2015 OMARI HOCLAIRETETTER LIBRARY CLERK TALKING BOOKS-C Work Phone: [facility] [employer] [facility] [place] [facility]. Start: 09-05-2015 End: 09-05-2015 Office outpatient visit 10 minutes OMARI MEIERTETTER LIBRARY CLERK TALKING BOOKS-C Work Phone: [facility] [employer] [facility] [place]. Start: 08-30-2015 End: 08-30-2015 OMARI HOFSTETTER LIBRARY CLERK TALKING BOOKS-C Work Phone: [employer] [employer] [facility] [place], [employer]. Start: 04-25-2015 End: 04-25-2015 Office outpatient visit 15 minutes OMARI HOFSTETTER LIBRARY CLERK TALKING BOOKS-C Work Phone: [employer] [employer]. Start: 03-22-2015 End: 03-22-2015 OMARI HOFSTETTER LIBRARY CLERK TALKING BOOKS-C Work Phone: [facility], [employer] Start: 03-21-2015 End: 03-21-2015 Office outpatient visit 10 minutes OMARI CRABTREETTER LIBRARY CLERK TALKING BOOKS-C Work Phone: [facility], [employer] Start: 09-13-2014 End: 09-13-2014 Office outpatient visit 10 minutes OMARI HOCLAIRETETTER LIBRARY CLERK TALKING BOOKS-C Work Phone: [facility], [employer] Start: 08-28-2014 End: 08-28-2014 OMARI HOFSTETTER LIBRARY CLERK TALKING BOOKS-C Work Phone: [facility] Start: 06-26-2014 End: 06-26-2014 OMARI HOFSTETTER LIBRARY CLERK TALKING BOOKS-C Work Phone: [facility] Start: 04-23-2014 End: 04-23-2014 OMARI HOFSTETTER LIBRARY CLERK TALKING BOOKS-C Work Phone: [facility], [employer] Start: 04-23-2014 End: 04-23-2014 OMARI HOFSTETTER LIBRARY CLERK TALKING BOOKS-C Work Phone: [facility], [employer] Start: 02-19-2014 End: 02-19-2014 OMARI HOFSTETTER LIBRARY CLERK TALKING BOOKS-C Work Phone: [facility] Start: 11-21-2013 End: 11-21-2013 OMARI HOFSTETTER LIBRARY CLERK TALKING BOOKS-C Work Phone: [facility] Start: 08-22-2013 End: 08-22-2013 OMARI HOFSTETTER LIBRARY CLERK TALKING BOOKS-C Work Phone: [facility] [employer] [facility] [place], [employer] Start: 08-21-2013 End: 08-21-2013 OMARI HOFSTETTER LIBRARY CLERK TALKING BOOKS-C Work Phone[facility] Start: 08-21-2013 End: 08-21-2013 OMARI HOS[employer] BiotechnologyTETTER LIBRARY CLERK TALKING BOOKS-C Work Phone: [facility], [employer] Start: 02-20-2013 End: 02-20-2013 OMARI HOFSTETTER LIBRARY CLERK TALKING BOOKS-C Work Phone: [facility] Start: 08-11-2012 End: 08-11-2012 OMARI HOFSTETTER LIBRARY CLERK TALKING BOOKS-C Work Phone: [facility] Start: 06-28-2012 End: 06-28-2012 OMARI HOFSTETTER LIBRARY CLERK TALKING BOOKS-C Work Phone: [facility] Start: 06-17-2012 End: 06-17-2012 OMARI HOFSTETTER LIBRARY CLERK TALKING BOOKS-C Work Phone: [facility] Start: 03-03-2012 End: 03-03-2012 OMARI HOFSTETTER LIBRARY CLERK TALKING BOOKS-C Work Phone: [facility] Start: 01-11-2012 End: 01-11-2012 OMARI HOFSTETTER LIBRARY CLERK TALKING BOOKS-C Work Phone: [facility] Start: 12-02-2011 End: 12-02-2011 OMARI HOSenex BiotechnologyTETTER LIBRARY CLERK TALKING BOOKS-C Work Phone: [facility], [employer]. Start: 10-20-2011 End: 10-20-2011 OMARI HOFSTETTER LIBRARY CLERK TALKING BOOKS-C Work Phone: [facility], [facility] Start: 08-21-2011 End: 08-21-2011 OMARI HOFSTETTER LIBRARY CLERK TALKING BOOKS-C Work Phone: [facility] [employer] [facility] [place], [employer] Start: 08-07-2011 End: 08-07-2011 OMARI HOFSTETTER LIBRARY CLERK TALKING BOOKS-C Work Phone[facility] Start: 08-06-2011 End: 08-06-2011 OMARI SAMUELS LIBRARY CLERK TALKING BOOKS-C Work Phone[facility] Start: 02-16-2011 End: 02-16-2011 OMARI CRABTREETTER LIBRARY CLERK TALKING BOOKS-C Work Phone[facility] Start: 11-23-2010 End: 11-23-2010 OMARI CRABTREETTER LIBRARY CLERK TALKING BOOKS-C Work Phone[facility] Start: 11-10-2010 End: 11-10-2010 OMARI CRABTREETTER LIBRARY CLERK TALKING BOOKS-C Work Phone[facility] Start: 08-15-2010 End: 08-15-2010 OMARI ELLISONER LIBRARY CLERK TALKING BOOKS-C Work Phone: [facility] Start: 07-28-2010 End: 07-28-2010 OMARI CRABTREETTER LIBRARY CLERK TALKING BOOKS-C Work Phone: [facility]. Start: 07-24-2010 End: 07-24-2010 OMARI HOCLAIRETETTER LIBRARY CLERK TALKING BOOKS-C Work Phone[facility] Start: 07-04-2010 End: 07-04-2010 OMARI CRABTREETTER LIBRARY CLERK TALKING BOOKS-C Work Phone: [facility] [employer] [facility] [place]. Start: 02-18-2010 End: 02-18-2010 OMARI MEIERTETTER LIBRARY CLERK TALKING BOOKS-C Work Phone: [employer] [facility] Patient encounter status OMARI MEIERHUGHWAI LIBRARY CLERK TALKING BOOKS-C Work Phone: [facility] [employer] [facility] [employer] [facility] [place] Procedures Date Procedure Procedure Detail Performing Clinician Start: 08-18-2023 End: 08-18-2023 Dischrg meds reconciled w/current med list OMARI Heredia ABRIL LIBRARY CLERK TALKING BOOKS-C Work Phone: Start: 07-12-2023 End: 07-12-2023 Collj & interpj physiol data min 30 min ea 30 d Una Overholt INVESTIGATION SPECIALIST Start: 07-09-2023 End: 07-09-2023 Dischrg meds reconciled w/current med list OMARI Heredia ABRIL LIBRARY CLERK TALKING [employer]-C Work Phone: Start: 06-02-2023 End: 06-02-2023 Ceftriaxone sodium injection Wendi HAHN MD Work Phone: Start: 06-02-2023 End: 06-02-2023 Dischrg meds reconciled w/current med list Wendi ESPINO MD Work Phone: Start: 06-02-2023 End: 06-02-2023 Therapeutic prophylactic/dx injection subq/im Wendi ESPINO MD Work Phone: Start: 06-01-2023 End: 06-01-2023 Ceftriaxone sodium injection Wendi HAHN MD Work Phone: Start: 06-01-2023 End: 06-01-2023 Dischrg meds reconciled w/current med list Wendi ESPINO MD Work Phone: Start: 06-01-2023 End: 06-01-2023 Therapeutic prophylactic/dx injection subq/im Wendi ESPINO MD Work Phone: Start: 04-07-2023 End: 04-07-2023 Dischrg meds reconciled w/current med list OMARI SAMUELS LIBRARY CLERK TALKING [employer]KS-C Work Phone: Start: 04-07-2023 End: 04-07-2023 Collj & interpj physiol data min 30 min ea 30 d OMARI SAMUELS LIBRARY CLERK [employer]ING [employer]-C Work Phone: Start: 03-19-2023 End: 03-19-2023 Dischrg meds reconciled w/current med list OMARI CRABTREETTER LIBRARY CLERK TALKING BOOKS-C Work Phone: Start: 03-19-2023 End: 03-19-2023 Collj & interpj physiol data min 30 min ea 30 d OMARI ELLISONER LIBRARY CLERK TALKING [employer]KS-C Work Phone: Start: 12-30-2022 End: 12-30-2022 Dischrg meds reconciled w/current med list OMARI ELLISONER LIBRARY CLERK TALKING [employer]-C Work Phone: Start: 12-02-2022 End: 12-02-2022 Dischrg meds reconciled w/current med list OMARI ELLSIONER LIBRARY CLERK TALKING BOOKS-C Work Phone: Start: 12-02-2022 End: 12-02-2022 Collj & interpj physiol data min 30 min ea 30 d OMARI ELLISONER LIBRARY CLERK [employer]-C Work Phone: Start: 09-11-2022 End: 09-11-2022 Collj & interpj physiol data min 30 min ea 30 d HODAN SUAREZ RN Start: 06-24-2022 End: 06-24-2022 Dischrg meds reconciled w/current med list OMARI CRABTREETTER LIBRARY CLERK [employer]ING [employer]-C Work Phone: Start: 06-12-2022 End: 06-12-2022 Collj & interpj physiol data min 30 min ea 30 d EMMETT HESTER MD Work Phone: Start: 02-21-2022 End: 02-21-2022 Collj & interpj physiol data min 30 min ea 30 d Nighat Kim Start: 12-10-2021 End: 12-10-2021 Dischrg meds reconciled w/current med list OMARI Heredia PAULOSUNNYER LIBRARY CLERK TALKING BOOKS-C Work Phone: Start: 12-10-2021 End: 12-10-2021 Collj & interpj physiol data min 30 min ea 30 d OMARI Heredia ABRIL LIBRARY CLERK [employer]-C Work Phone: Start: 10-17-2021 End: 10-17-2021 Collj & interpj physiol data min 30 min ea 30 d EMMETT HESTER MD Work Phone: Start: 08-14-2021 End: 08-14-2021 Collj & interpj physiol data min 30 min ea 30 d EMMETT HESTER MD Work Phone: Start: 06-19-2021 End: 06-19-2021 Collj & interpj physiol data min 30 min ea 30 d EMMETT HESTER MD Work Phone: Start: 04-28-2021 End: 04-28-2021 Una Overholt INVESTIGATION SPECIALIST Start: 04-21-2021 End: 04-21-2021 Collj & interpj physiol data min 30 min ea 30 d EMMETT HESTER MD Work Phone: Start: 01-02-2021 End: 01-02-2021 Collj & interpj physiol data min 30 min ea 30 d EMMETT HESTER MD Work Phone: Start: 11-11-2020 End: 11-11-2020 Ceftriaxone sodium injection Wendi HAHN MD Work Phone: Start: 11-11-2020 End: 11-11-2020 Therapeutic prophylactic/dx injection subq/im Wendi ESPINO MD Work Phone: Start: 11-11-2020 End: 11-11-2020 Una Gonsalesolt INVESTIGATION SPECIALIST Start: 10-28-2020 End: 10-28-2020 Dischrg meds reconciled w/current med list EMMETT HESTER MD Work Phone: Start: 10-28-2020 End: 10-28-2020 Collj & interpj physiol data min 30 min ea 30 d EMMETT HESTER MD Work Phone: Start: 07-12-2020 End: 07-12-2020 Collj & interpj physiol data min 30 min ea 30 d EMMETT HESTER MD Work Phone: Start: 04-19-2020 End: 04-19-2020 Collj & interpj physiol data min 30 min ea 30 d Nighat Wayne Judy Start: 02-29-2020 End: 02-29-2020 Collj & interpj physiol data min 30 min ea 30 d EMMETT HESTER MD Work Phone: Start: 12-29-2019 End: 12-29-2019 Collj & interpj physiol data min 30 min ea 30 d Nighat Wayne Judy Start: 11-10-2019 End: 11-10-2019 Collj & interpj physiol data min 30 min ea 30 d EMMETT HESTER MD Work Phone: Start: 08-29-2019 End: 08-29-2019 Coronary angiography OMARI MERCER R LIBRARY CLERK [employer]-C Work Phone: Start: 08-21-2019 End: 08-21-2019 Dischrg meds reconciled w/current med list BEN HESTER MD Work Phone: Start: 08-21-2019 End: 08-21-2019 Una Overholt [facility] Start: 08-21-2019 End: 08-21-2019 Collj & interpj physiol data min 30 min ea 30 d BEN HESTER MD Work Phone: Start: 08-17-2019 End: 08-17-2019 Echocardiography OMARI SAMUELS LIBRARY CLERK [employer] Work Phone: Start: 08-17-2019 End: 08-17-2019 OMARI SAMUELS LIBRARY CLERK [employer] Work Phone: Start: 05-08-2019 End: 05-08-2019 Collj & interpj physiol data min 30 min ea 30 d BEN HESTER MD Work Phone: Start: 03-09-2019 End: 03-09-2019 Collj & interpj physiol data min 30 min ea 30 d BEN HESTER MD Work Phone: Start: 02-20-2019 End: 02-20-2019 Dischrg meds reconciled w/current med list BEN HESTER MD Work Phone: Start: 12-16-2018 End: 12-16-2018 Collj & interpj physiol data min 30 min ea 30 d BEN HESTER MD Work Phone: Start: 08-29-2018 End: 08-29-2018 Dischrg meds reconciled w/current med list BEN HESTER MD Work Phone: Start: 08-29-2018 End: 08-29-2018 Collj & interpj physiol data min 30 min ea 30 d BEN HESTER MD Work Phone: Start: 05-31-2018 End: 05-31-2018 Collj & interpj physiol data min 30 min ea 30 d BEN HESTER MD Work Phone: Start: 04-03-2018 End: 04-03-2018 Prostate specific antigen measurement Una Overholt INVESTIGATION SPECIALIST Start: 03-10-2018 End: 03-10-2018 Collj & interpj physiol data min 30 min ea 30 d BEN HESTER MD Work Phone: Start: 12-22-2017 End: 12-22-2017 OMARI SAMUELS LIBRARY CLERK [employer] Work Phone: Start: 12-13-2017 End: 12-13-2017 Collj & interpj physiol data min 30 min ea 30 d BEN HESTER MD Work Phone: Start: 08-09-2017 End: 08-09-2017 Collj & interpj physiol data min 30 min ea 30 d Rachel Higginbotham RN Start: 04-14-2017 End: 04-14-2017 Collj & interpj physiol data min 30 min ea 30 d BEN HESTER MD Work Phone: Start: 03-22-2017 End: 03-22-2017 Falls risk assessment documented BEN HESTER MD Work Phone: Start: 09-30-2015 End: 09-30-2015 Una Overholt INVESTIGATION SPECIALIST Start: 09-13-2015 End: 09-13-2015 OMARI SAMUELS LIBRARY CLERK [employer] Work Phone: Start: 09-12-2015 End: 09-12-2015 Una Overholt INVESTIGATION SPECIALIST Start: 09-12-2015 End: 09-12-2015 OMARI ELLISONER LIBRARY CLERK [employer] Work Phone: Start: 09-11-2015 End: 09-11-2015 [facility] OMARI SAMUELS LIBRARY CLERK [employer] Work Phone: Start: 09-11-2015 End: 09-11-2015 OMARI SAMUELS LIBRARY CLERK [employer] Work Phone: Start: 10-04-1979 End: 10-04-1979 Appendectomy Una Overholt INVESTIGATION SPECIALIST Una Overholt C MA Una Overholt C MA OMARI AGUILERA PARKER LIBRARY CLERK T[employer]ING [employer] Work Phone: Unaricco Gonsalesolsaw Foy MA Plan of Treatment Date Care Activity Detail Author Start: 11-15-2023 [facility]; [facility] [employer] [facility] [place]. Start: 06-01-2023 Blood occult peroxid ase actv qual feces 1 deter [facility] [employer]; [facility], [employer]. Start: 03-24-2023 Collj & interpj phys iol data min 30 min ea 30 d [facility] [employer] [facility] [place].; [facility]. Start: 02-24-2023 Collj & interpj phys iol data min 30 min ea 30 d [facility] [employer] [facility] [place].; [facility] [employer] [facility] [place]. Start: 06-05-2022 [facility] [employer] [facility] [place].; [facility] [employer] [facility] [place]. Start: 12-10-2021 [facility] [employer] [facility] [place].; [facility] [employer] [facility] [place], [employer]. Start: 06-27-2021 [facility] [employer] [facility] [place].; [facility] [employer] [facility] [place], [employer]. Start: 08-21-2019 End: 08-21-2019 Falls risk assessment documented [facility] [employer] [facility] [place], Inc.; [facility] [employer] [facility] [place], Inc. Start: 02-20-2019 [facility] [employer] [facility] [place], Inc.; [facility] [employer] [facility] [place], Inc. Start: 08-29-2018 [facility] [employer] [facility] [place], Inc.; [facility] [employer] [facility] [place], Inc. Start: 08-29-2018 End: 08-29-2018 Falls risk assessment documented [facility] [employer] [facility] [place], Inc.; [facility] [employer] [facility] [place], Inc. Start: 04-18-2018 [facility] [employer] [facility] [place], Inc.; [facility] [employer] [facility] [place], Inc. Start: 04-18-2018 Blood occult peroxid ase actv qual feces 1 deter [facility] [employer] [facility] [place], Inc.; [facility] [employer] [facility] [place], Inc. Start: 12-13-2017 [facility] [employer] [facility] [place], Inc.; [facility] [employer] [facility] [place], Inc. Start: 07-26-2017 [facility] [employer] [facility] [place], Inc.; [facility] [employer] [facility] [place], Inc. Start: 03-22-2017 [facility] [employer] [facility] [place], Inc.; [facility] [employer] [facility] [place], Inc. Start: 11-11-2015 [facility] [employer] [facility] [place], Inc.; [facility] [employer] [facility] [place], Inc. Start: 10-07-2015 [facility] [employer] [facility] [place], Inc.; [facility] [employer] [facility] [place], Inc. Start: 09-23-2015 [facility] [employer] [facility] [place], Inc.; [facility] [employer] [facility] [place], Inc. Start: 09-05-2015 [facility] [employer] [facility] [place], Inc.; [facility] [employer] [facility] [place], Inc. Start: 04-25-2015 [facility] [employer] [facility] [place], Inc.; [facility] [employer] [facility] [place], Inc. Start: 03-21-2015 [facility] [employer], Inc.; [facility] [employer] [facility] [place], Inc. Start: 09-13-2014 [facility] [employer], Inc.; [facility] [employer] [facility] [place], Inc. Start: 06-26-2014 Repair intermediate s/a/t/e 7.6-12.5 cm [facility] [employer], Inc.; [facility] [employer], Inc. Start: 06-26-2014 [facility] [employer] [facility] [place], Inc.; [facility] Start: 11-21-2013 [facility]. Start: 11-10-2010 End: 11-10-2010 [facility] real time w/image complete [facility] [employer].; [facility]. Immunizations Immunization Date Immunization Notes Care Provider Lani bach 08-18-2023 influenza virus vaccine, unspecified formulation OMARI HOFSTETTER LIBRARY CLERK TALKING BOOKS-C Work Phone: [facility]. 11-11-2020 tetanus toxoid, reduced diphtheria toxoid, and acellular pertussis vaccine, adsorbed OMARI HOFSTETTER LIBRARY CLERK TALKING [employer]OOKS-C Work Phone: [facility] [employer] [facility] [place].; [facility] [employer] [facility] [place]. 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 06-26-[address] LIBRARY CLERK TALKING BOOKS-C Work Phone: [facility] [employer] [facility] [place] [facility].; [facility], [employer]. 06-26-2014 tetanus toxoid, reduced diphtheria toxoid, and acellular pertussis vaccine, adsorbed OMARI HOFSTETTER LIBRARY CLERK TALKING [employer]OOKS-C Work Phone: [facility] [employer] [facility] [place].; [facility]. 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 NEGATED: Highlighted row has not occurred!08-29-2018 influenza, seasonal, injectable OMARI HOFSTETTER LIBRARY CLERK TALKING [employer]OOKS-C Work Phone: [facility] [employer] [facility] [place].; [employer] [facility] [employer] [facility] [place]. Payers Date Payer Category Payer Unknown [id number] 2022 Unknown [id number] 1950 Unknown [id number] 1950 Unknown [id number] 1950 Unknown [id number] Unknown Unknown 35 Social History Date Type Detail Facility No Alcohol Use. [facility] [place].; [facility]. [facility].; [facility] Less than high school. [facility] Hospital[facility].; [facility]. . [facility].; [employer] [facility] [employer] [facility] [employer] [facility] [place]. [facility] smoker. [facility].; [facility] [employer] [facility] [place]. Summary Purpose Family History Brother (s) Status:Active Comments:2. knee replacements for both brothers Daughter (s) Status:Active Comments:2. 1 wi th special needs, age 41 Father Status:Active Comments: d. d. 77 yo; Renal cancer; CHF, CAD Mother Status:Active Comments:d. 78 y o; Sister (s) Status:Active Comments:5. 2 d. CHF DM2 CA in 70s; HTN for others Son (s) Status:Active Comments:3. 1 wi th special needs, age 38 Brother (s) Status:Active Comments:2. knee replacements for both brothers Daughter (s) Status:Active Comments:2. 1 wi th special needs, age 41 Father Status:Active Comments: d. d. 77 yo; Renal cancer; CHF, CAD Mother Status:Active Comments:d. 78 y o; Sister (s) Status:Active Comments:5. 2 d. CHF DM2 CA in 70s; HTN for others Son (s) Status:Active Comments:3. 1 wi th special needs, age 38 Brother (s) Status:Active Comments:2. knee replacements for both brothers Daughter (s) Status:Active Comments:2. 1 wi th special needs, age 41 Father Status:Active Comments: d. d. 77 yo; Renal cancer; CHF, CAD Mother Status:Active Comments:d. 78 y o; Sister (s) Status:Active Comments:5. 2 d. CHF DM2 CA in 70s; HTN for others Son (s) Status:Active Comments:3. 1 wi th special needs, age 38 Brother (s) Status:Active Comments:2. knee replacements for both brothers Daughter (s) Status:Active Comments:2. 1 wi th special needs, age 41 Father Status:Active Comments: d. d. 77 yo; Renal cancer; CHF, CAD Mother Status:Active Comments:d. 78 y o; Sister (s) Status:Active Comments:5. 2 d. CHF DM2 CA in 70s; HTN for others Son (s) Status:Active Comments:3. 1 wi th special needs, age 38 Brother (s) Status:Active Comments:2. knee replacements for both brothers Daughter (s) Status:Active Comments:2. 1 wi th special needs, age 41 Father Status:Active Comments: d. d. 77 yo; Renal cancer; CHF, CAD Mother Status:Active Comments:d. 78 y o; Sister (s) Status:Active Comments:5. 2 d. CHF DM2 CA in 70s; HTN for others Son (s) Status:Active Comments:3. 1 wi th special needs, age 38 Advance Directives No Advanced Directives Records FoundNo Advanced Directives Records FoundNo Advanced Directives Records FoundNo Advanced Directives Records FoundNo Advanced Directives Records Found Additional Source Comments (unrecognized sect ion and content) No Status Records FoundNo Status Records FoundNo Status Records FoundNo Status Records FoundNo Status Records Found INFORMATION SOURCE (unrecogn ized section and content) DATE CREATED AUTHOR AUTHOR'S ORGANIZ ATION 05/05/2022 [facility] DATE CREATED AUTHOR AUTHOR'S ORGANIZ ATION 10/15/2022 [facility] DATE CREATED AUTHOR AUTHOR'S ORGANIZ ATION 01/07/2023 [facility] DATE CREATED AUTHOR AUTHOR'S ORGANIZ ATION 11/01/2023 [facility] FOR RECORDS PERTAINING TO PATIENTS WHO ARE OR HAVE BEEN ENROLLED IN A CHEMICAL DEPENDENCY/SUBSTANCEABUSE PROGRAM, SOME INFORMATION MAY BE OMITTED. This clinical summary was aggregated from multiple sources. Caution should be exercised in using it in the provision of clinical care. This summary normalizes information from multiple sources, and as a consequence, information in this document may materially change the coding, format and clinical context of patient data. In addition, data may be omitted in some cases. CLINICAL DECISIONS SHOULD BE BASED ON THE PRIMARY CLINICAL RECORDS. [facility]. provides no warranty or guarantee of the accuracy or completeness of information in this document.
--- NOTE | 2023-12-02 12:27 | STRESSREP ---
Stress Test Report Date: 11/30/2023 Procedure: Pharmacologic stress nuclear imaging study Indications: Coronary artery disease Consent: Per the patient Procedure: The patient underwent pharmacologic (Regadenoson 0.4mg ) evaluation with a peak heart rate of 82 beats per minute (55%predicted maximal heart rate) and a peak blood pressure of 145/90 mmHg. The baseline ECG demonstrated atrial fibrillation. The peak pharmacologic ECG demonstrated no diagnostic ischemic changes. There were no cardiac dysrhythmias pretest, during pharmacologic infusion, or recovery. There was no complaint of chest discomfort during pharmacologic infusion or recovery. The patient was injected with 11.9 millicuries of technetium 99m Cardiolite and subsequently rest SPECT Cardiolite nuclear imaging was obtained in the horizontal long, vertical long, and short axis views. The patient underwent pharmacologic (Regadenoson) evaluation. The patient was injected with 35.4 millicuries of technetium 99m Cardiolite and subsequently stress SPECT Cardiolite nuclear imaging was obtained in the horizontal long, vertical long, and short axis views. A gated Cardiolite study at peak stress was obtained. The examination was stopped secondary to completion of protocol. Rest and stress SPECT Cardiolite nuclear imaging status post realignment, normalization, and attenuation correction demonstrate no fixed or reversible perfusion defects. There is end systolic thickening and brightening. The gated Cardiolite study demonstrates myocardial thickening and inward wall motion. The reported LVEF is 70%. Impression: 1. Pharmacologic (Regadenoson) evaluation 2. Peak pharmacologic ECG with no ischemic changes. 3. Baseline atrial fibrillation.. 5. Rest and stress SPECT Cardiolite nuclear imaging demonstrate relative uniform tracer uptake and myocardial perfusion appearing within normal limits. 6. The gated Cardiolite study reports an LVEF of 70%. This note was generated with [employer] software. It may contain incorrect words, spelling, and punctuation that were not noted in checking the note before signing.
== END | disposition home or self-care (01) ==
PROVIDERS: PCP Nurse Practitioner Family; Referring Provider Internal Medicine Cardiovascular Disease; Visit Provider Internal Medicine Cardiovascular Disease
DX: R60.0 Localized edema (principal); I48.0 Paroxysmal atrial fibrillation; I25.10 Atherosclerotic heart disease of native coronary artery without angina pectoris; I35.0 Nonrheumatic aortic (valve) stenosis; I10 Essential (primary) hypertension; E78.5 Hyperlipidemia, unspecified; Z95.0 Presence of cardiac pacemaker
CPT/HCPCS: 78452; 93017; 93306; A9500; A4216; J2785